=== PATIENT | female | born 1930 | race Caucasian/White ===

== ENCOUNTER 2016-07-10 12:39 | Emergency (ER) | payer MEDICARE, MEDICAID ==
--- NOTE | ~2016-07-10 | ER ---
PATIENT'S NAME: JUAN CASTANEDA [facility] AGE: 86 Y [address] ROOM: [place] [address] LOCATION: [facility] ADMIT DATE: 07/10/2016 ER/Outpatient Report DISCHARGE DATE: 07/10/2016 FAMILY PHYSICIAN: Ekta Salazar MD ATTENDING PHYSICIAN: Mikhail Gonzalez Time of Arrival: 1239 hours. Time of Evaluation: 1239 hours. CHIEF COMPLAINT: Initially, ankle pain. HISTORY OF PRESENT ILLNESS: The patient is an 86-year-old female who presents to the emergency department today with chief complaint ankle pain. Upon questioning, the patient denies any pain at this time. However, she is breathing fast. She denies any chest pain and denies any shortness of breath. Although, she is breathing fast. She denies any fevers or chills. No nausea or vomiting. No diarrhea or constipation. Upon discussion with the family, the half-way has told them that the patient would not get out of bed today. She would need dressed and come down for breakfast, so they became concerned and sent her in for further evaluation. The patient denies any pain currently. PAST MEDICAL HISTORY: 1. Hypertension. 2. Hypothyroid. 3. Depression. 4. Anxiety. 5. Hemorrhoids. 6. Osteoarthritis. 7. Osteoporosis. PAST SURGICAL HISTORY: 1. Appendectomy. 2. Cholecystectomy. 3. Right oophorectomy. SOCIAL HISTORY: The patient lives in [facility]. Denies any tobacco, alcohol, illicit drug use. ALLERGIES: NO KNOWN DRUG ALLERGIES. PATIENT'S NAME: JUAN CASTANEDA [facility] AGE: 86 Y [address] ROOM: [place] [address] LOCATION: [facility] ADMIT DATE: 07/10/2016 ER/Outpatient Report DISCHARGE DATE: 07/10/2016 FAMILY PHYSICIAN: Ekta Salazar MD ATTENDING PHYSICIAN: Mikhail Gonzalez MEDICATIONS: Please see list. PRIMARY CARE DOCTOR: Ekta Salazar MD. REVIEW OF SYSTEMS: All systems are reviewed by myself and negative with the exception of those discussed in HPI and past medical history. PHYSICAL EXAMINATION: VITAL SIGNS: Pulse 70, respiratory rate 38, temperature 97.3, blood pressure 140/65, pulse ox 97% on room air. GENERAL: The patient is 86-year-old female, who appears stated age, in no acute distress. Well developed, well nourished. HEENT: Head: Normocephalic, atraumatic. Pupils are equal, round, and reactive to light and accommodation. Extraocular motions are intact. Nares are patent bilaterally. TMs are clear. Oropharynx is clear. NECK: Supple. There is no nuchal rigidity. CARDIOVASCULAR: Regular rate and rhythm. No murmurs, rubs, or gallops. LUNGS: Tachypneic, but clear to auscultation bilaterally. No wheezes, rales, or rhonchi. ABDOMEN: Soft, nontender, and nondistended. No rebound, rigidity, or guarding. MUSCULOSKELETAL: The patient moves all 4 extremities. NEUROLOGICAL: GCS 15. Alert and oriented x4. Cranial nerves 2 through 12 are intact. Normal finger to nose. Normal rapid hand movement. Equal agency cashier strength bilaterally. Downward going toes. No clonus. 2/4 reflexes. SKIN: Warm and dry. There are no rashes or lesions noted. DIAGNOSTIC DATA: Labs and x-rays are obtained. EKG is obtained, is interpreted by myself shows sinus bradycardia with a rate of 59, normal axis, AZ interval 211, QTc of 454, no ST elevation, ST depression, T-wave inversions. CBC is normal. Venous blood gas 7.49/28/32/22/negative 1.0. Lactate is 2.5. Coags are normal. Cardiac enzymes are normal. Salicylate less than 2.8. Acetaminophen is 9.2. LFTs are normal. Procalcitonin 0.05. CMP is unremarkable except for a CO2 of 21, creatinine 1.6. D-dimer is 2.48. ProBNP is 2980. CT scan of the brain was obtained. I have discussed the results with radiologist, shows small-vessel change, no acute process. Ultrasound of bilateral lower extremities obtained. I have discussed the results with the venous Doppler tech. It is negative for DVT. V/Q scan was obtained. PATIENT'S NAME: JUAN CASTANEDA [facility] AGE: 86 Y [address] ROOM: [place] [address] LOCATION: ED ADMIT DATE: 07/10/2016 ER/Outpatient Report DISCHARGE DATE: 07/10/2016 FAMILY PHYSICIAN: Ekta Salazar MD ATTENDING PHYSICIAN: Mikhail Gonzalez Discussed the results with the radiologist shows low probability for pulmonary embolism. Urinalysis is contaminated specimen with 20-50 epithelials without symptoms. IMPRESSION: 1. Tachypnea, resolved. 2. Bilateral ankle pain, resolved. 3. Elevated D-dimer. 4. Initial visit. EMERGENCY DEPARTMENT COURSE: The patient was brought back to the examination room. Seen and evaluated by myself. IV was established. Laboratory analysis and imaging are obtained as described above. The patient upon initial presentation does appear tachypneic with normal lung sounds. She denies chest pain and denies shortness of breath with elevated D-dimer. We did proceed with further evaluation for potential blood clot. The patient's family does arrive. The patient spontaneously resolved tachypnea. She was acting completely normal per family. She actually gets up and walks to the bathroom with a walker which she normally uses. She was conversing completely appropriately. I have discussed the results with the patient of the laboratory analysis and imaging as well as the patient's family. The patient was back at her baseline at this time. She was ambulating throughout the emergency department. She has no tachypnea now. She has no evidence of blood clots on the CT scan or ultrasound. She reports that she has no symptoms at this time. She would like to go home. I have discussed the results with the patient and I have recommended close followup with Dr. Salazar in 1-2 days for re-evaluation. I have discussed return to care instructions including worsening symptoms, chest pain, shortness of breath, fevers, chills, or any other concerns to return to the emergency department as soon as possible. The patient is agreeable and family is agreeable. They are without further questions at this time. DISPOSITION: The patient discharged home in good condition. DO SHAKIRA PURI/jil /[id number] d: 07/11/16 0742 t: 03/24/17 1032, OUTPATIENT REPORT
--- NOTE | ~2016-07-10 | ENPV ---
Vascular Lower Extremities DVT Study Procedure Demographics Patient Name JUAN CASTANEDA Date of Study 07/10/2016 Patient Number [id number] Gender Female Date of 1930 Age 86 Visit Number [id number] Height Accession Number [id number] Weight Room Number BSA BMI Referring Lisa Elizondo MD Interpreting Shaka Mcclendon MD Physician Physician Physician Ordering Physician Lisa Elizondo MD [employer] Mckay [employer] [facility], [facility] Conclusions Summary No evidence of deep vein thrombosis or superficial thrombophlebitis in the lower extremities bilaterally . Procedure Type of Study: Veins:Lower Extremities DVT Study, Venous Duplex Lower Extremity Bilateral. Indications for Study:Pain in Limb. Appropriate Use Criteria:9 Patient Status:STAT. Study Location:ER. Technical Quality:Adequate visualization. Velocities are measured in cm/s ; Diameters are measured in cm Right Lower Extremities DVT Study Measurements Right 2D and Doppler Measurements + + + + +------+------+ + !Location !Visualized!Compressibility!Thrombosis!Signal!Reflux!Reflux ! ! ! ! ! ! ! !(sec) ! + + + + +------+------+ + !GSV Thigh !Yes !Yes !None !Phasic! ! ! + + + + +------+------+ + !Common !Yes !Yes !None !Phasic! ! ! !Femoral ! ! ! ! ! ! ! + + + + +------+------+ + !Prox !Yes !Yes !None !Phasic! ! ! !Femoral ! ! ! ! ! ! ! + + + + +------+------+ + !Mid Femoral!Yes !Yes !None !Phasic! ! ! + + + + +------+------+ + !Dist !Yes !Yes !None !Phasic! ! ! !Femoral ! ! ! ! ! ! ! + + + + +------+------+ + !Popliteal !Yes !Yes !None !Phasic! ! ! + + + + +------+------+ + !Gastroc !Yes !Yes !None ! ! ! ! + + + + +------+------+ + !PTV !Yes !Yes !None ! ! ! ! + + + + +------+------+ + !Peroneal !Yes !Yes !None ! ! ! ! + + + + +------+------+ + Left Lower Extremities DVT Study Measurements Left 2D and Doppler Measurements + + + + +------+------+ + !Location !Visualized!Compressibility!Thrombosis!Signal!Reflux!Reflux ! ! ! ! ! ! ! !(sec) ! + + + + +------+------+ + !GSV Thigh !Yes !Yes !None !Phasic! ! ! + + + + +------+------+ + !Common !Yes !Yes !None !Phasic! ! ! !Femoral ! ! ! ! ! ! ! + + + + +------+------+ + !Prox !Yes !Yes !None !Phasic! ! ! !Femoral ! ! ! ! ! ! ! + + + + +------+------+ + !Mid Femoral!Yes !Yes !None !Phasic! ! ! + + + + +------+------+ + !Dist !Yes !Yes !None !Phasic! ! ! !Femoral ! ! ! ! ! ! ! + + + + +------+------+ + !Popliteal !Yes !Yes !None !Phasic! ! ! + + + + +------+------+ + !Gastroc !Yes !Yes !None ! ! ! ! + + + + +------+------+ + !PTV !Yes !Yes !None ! ! ! ! + + + + +------+------+ + !Peroneal !Yes !Yes !None ! ! ! ! + + + + +------+------+ + Signature dtt: CHRISTIANNE BROWN dtd: 07/10/16 1432 Physician Self Edkavitha
[2016-07-10 13:45] LABS: BICARBONATE 21.3 mmol/L (18.0-23.0); LACTATE 2.5 mEq/L (0.50-1.60); PCO2 28 mmHg (35-45)
[2016-07-10 13:46] LABS: HEMATOCRIT 39.5 % (30.0-46.0); HEMOGLOBIN 13.6 g/dL (10.0-15.0); MCHC 34.4 gm/dL (32.0-36.5); MCV 92.9 fl (83.0-98.0); MPV 9.1 fl (9.4-12.4); PLATELET COUNT 193 K/uL (150-450); PO2 32 mmHg (80-90); RBC 4.25 M/uL (3.00-5.00); RDW-CV 13.2 % (11.9-14.6)
[2016-07-10 13:58] LABS: INR - (THERAPEUTIC) 1.1 (0.9-1.1); PROTIME 11.1 SECONDS (9.6-11.1); PTT 25 SECONDS (25-32)
[2016-07-10 14:08] LABS: ALBUMIN 3.4 gm/dL (3.5-5.0); ALK PHOS 110 IU/L (33-138); ALT 18 IU/L (12-78); ANION GAP 16.7 (10.0-19.0); AST 21 IU/L (10-40); BLOOD UREA NITROGEN 21 mg/dL (6-24); CHLORIDE 106 mMol/L (96-110); CO2 21 mMol/L (22-32); CPK 41 IU/L (21-215); CREATININE 1.6 mg/dL (0.5-1.1); ESTIMATED GFR (MDRD EQUATION) 30; POTASSIUM 4.7 mMol/L (3.7-5.1); SODIUM 139 mMol/L (135-145); TOTAL BILIRUBIN 1.2 mg/dL (0.0-1.5); TOTAL PROTEIN 7.2 g/dL (6.0-8.4)
[2016-07-10 14:15] LABS: ABSOLUTE NEUTROPHIL CT (ANC) 7.4 K/uL (1.8-7.8); BANDED NEUTROPHIL # 0.1 K/uL (0.0-0.1); BANDED NEUTROPHILS % 1 %; LYMPHOCYTE # 0.4 K/uL (0.8-4.0); LYMPHOCYTE % 5 %; MONOCYTE # 0.2 K/uL (0.0-1.0); SEGMENTED NEUTROPHIL # 7.4 K/uL (1.8-7.8); SEGMENTED NEUTROPHIL % 92 %
[2016-07-10 14:30] LABS: BILIRUBIN URINE NEGATIVE (NEGATIVE); BLOOD URINE 25 /UL (NEGATIVE); COLOR URINE YELLOW (YELLOW); GLUCOSE URINE NEGATIVE (NEGATIVE); KETONE URINE NEGATIVE (NEGATIVE); LEUKOCYTES URINE 500 /UL (NEGATIVE); NITRITE URINE NEGATIVE (NEGATIVE); PROTEIN URINE NEGATIVE (NEGATIVE); TURBIDITY URINE 2+ (CLEAR); UROBILINOGEN URINE NORMAL (NORMAL)
[2016-07-10 14:52] LABS: AMORPHOUS URINE 1+ (NEGATIVE); BACTERIA URINE MODERATE (NEGATIVE); EPITHELIAL URINE 20-50 #/HPF (NEGATIVE); WBC URINE 20-50 #/HPF (NEGATIVE)
== END 2016-07-10 17:19 | disposition disaster alternative care site (69) ==
LOC: GMED 12:39
PROVIDERS: Emergency Medicine
DX: M25.572 Pain in left ankle and joints of left foot (principal); M25.571 Pain in right ankle and joints of right foot; R06.82 Tachypnea, not elsewhere classified; R79.1 Abnormal coagulation profile; I10 Essential (primary) hypertension; E03.9 Hypothyroidism, unspecified; F32.9 Major depressive disorder, single episode, unspecified; F41.9 Anxiety disorder, unspecified; M19.90 Unspecified osteoarthritis, unspecified site; M81.0 Age-related osteoporosis without current pathological fracture; Z90.49 Acquired absence of other specified parts of digestive tract
CPT/HCPCS: A9539; A9540; G0480; J2060; J3010

== ENCOUNTER → 2016-07-10 | Outpatient (CLI) | payer MEDICARE, MEDICAID ==
[~2016-07-10] MED LIST: ALOE VESTA226 GM TOP; ASPIRIN LO-DOSE81 MG PO; ATIVAN 0.5MG0.5 MG PO; DOXYCYCLINE100 MG PO; DULCOLAX10 MG R; FLORASTOR250 MG PO; LEVOTHROID (SY50 MCG PO; LOPRESSOR25 MG PO; MILK OF MA400 MG/5 M PO; MIRALAX17 GM PO; PRINIVIL (ZESTRI5 MG PO; TRIAMCINOLONE454 GM TOP; TYLENOL325 MG PO
== END | disposition disaster alternative care site (69) ==
LOC: GAMB 12:26
DX: S89.91XA Unspecified injury of right lower leg, initial encounter (principal); M10.9 Gout, unspecified; M79.662 Pain in left lower leg; M25.572 Pain in left ankle and joints of left foot; Z79.899 Other long term (current) drug therapy; X58.XXXA Exposure to other specified factors, initial encounter
CPT/HCPCS: A0425; A0427

== ENCOUNTER 2016-07-14 20:01 | Inpatient (IN) | payer MEDICARE, MEDICAID ==
[~2016-07-14] VITALS: Ht 157.5 cm; Wt 82.1 kg
--- NOTE | ~2016-07-14 | CON ---
PATIENT'S NAME: JUAN CASTANEDA [facility] AGE: 86 Y [address] ROOM: [place] [address] LOCATION: [facility] ADMIT DATE: 07/15/2016 Consultation DISCHARGE DATE: FAMILY PHYSICIAN: Ekta Salazar MD ATTENDING PHYSICIAN: Adis Kimble DATE OF CONSULTATION: 07/15/2016 REFERRING PHYSICIAN: Vinay Ordaz MD CHIEF COMPLAINT: Right groin abscess. REVIEW OF RECORD: The patient is an 86-year-old elderly lady, who is a poor historian, came from the longterm after having some balance issues and fell. During the evaluation process, she was found to have a right groin 3 cm soft tissue abscess and spontaneous drainage through a decompressive site. Minimal erythema. No fevers. The patient was admitted to the hospital and started on IV antibiotics. I was asked to render surgical opinion regarding incision and drainage. PAST MEDICAL HISTORY: Reviewed. ALLERGIES: NONE. ILLNESSES: Include dementia, hypertension, hypothyroidism, chronic renal disease, depression, and chronic lower leg extreme edema. MEDICATION LIST: Noted. PAST SURGICAL HISTORY: Include gallbladder removal, hysterectomy, appendectomy, right knee surgery, and bilateral cataract. REVIEW OF SYSTEMS: The patient denies any prior history of abscess in this region but she says this one has been present for 2 years. Denies any other sites of soft tissue infections. PHYSICAL EXAMINATION: GENERAL: Limited exam. She is alert, cooperative, afebrile. PATIENT'S NAME: JUAN CASTANEDA [facility] AGE: 86 Y [address] ROOM: [place] [address] LOCATION: [facility] ADMIT DATE: 07/15/2016 Consultation DISCHARGE DATE: FAMILY PHYSICIAN: Ekta Salazar MD ATTENDING PHYSICIAN: Adis Kimble HEENT: Mucous membranes are moist. NECK: Supple. There is no adenopathy. LUNGS: Clear. HEART: Normal sinus rhythm. ABDOMEN: Soft, flat, and nontender. EXTREMITIES: Her right groin has a 3 cm soft tissue mass with a punctate draining site, looks like a core was removed from it. There is minimal surrounding erythema. No undrained fluctuance. Left groin is fine. Trace of peripheral edema bilaterally. IMPRESSION: Soft tissue mass, right groin. Recommend completion incision and drainage to rule out undrained fluid abscess cavity collection. Thank you very much for allowing me to participate in her care. MD RENAN KRAMER/og /[id number] d: 07/15/16 1529 t: 07/18/16 1045, CONSULTATION REPORT
--- NOTE | ~2016-07-14 | DS ---
PATIENT'S NAME: JUAN CASTANEDA [facility] AGE: 86 Y [address] ROOM: [address] [address] LOCATION: [facility] ADMIT DATE: 07/15/2016 Discharge Summary DISCHARGE DATE: 07/16/2016 FAMILY PHYSICIAN: Ekta Salazar MD ATTENDING PHYSICIAN: Adis Kimble DISCHARGE DIAGNOSES: 1. Right groin abscess. 2. Dementia. 3. Chronic lower extremity edema. 4. Generalized weakness. PRINCIPAL PROCEDURE: I and D of right groin abscess at the bedside on 07/15/[address] Ordaz. PERTINENT LABORATORY DATA: Wound culture collected from the groin on 07/14/2016 at the time of admission showed Staph aureus, moderate growth; and diphtheroid, moderate growth. UA obtained in the ER showed 25 leukocytes, negative nitrites, microscopically 2-5 wbc's, 5-10 rbc's, and few bacteria. CMS was unremarkable with the exception of a creatinine of 1.5, GFR 33, and a mildly elevated AST of 62. CRP was elevated at 9.49. Lactate 1.4. Procalcitonin 0.05. CBC upon admission showed a white count of 9.3, hemoglobin 13.7, MCV 97, and platelets 237. The lactate was repeated on 07/15/2016 and found to be 0.8. A BMP on 07/15/2016 showed a creatinine of 1.3. Blood cultures drawn on 07/14/2016 are negative at the time of discharge. RADIOLOGIC DATA: A CT scan without contrast on 07/14/2016 did have an area of suspected diverticulitis of the sigmoid colon. No free air. No bowel obstruction, distended common bile duct with a diameter of 15 mm, no obstructing calculi. There were atrophic kidneys, sliding hiatal hernia, vascular calcifications, and a calcified granuloma of the left mid lung. HOSPITAL COURSE: Please refer to the admitting H and P dictated by Dr. Kimble for more detailed outline of the patient's presentation. The patient was ultimately admitted to the medical-surgical unit. General Surgery was consulted. The patient had no complaint of abdominal pain, alterations in bowel habits. Given the lack of clinical findings confirming the diverticulitis, ultimately, the initial Zosyn and Flagyl given for coverage were discontinued on 07/15/2016. Dr. Ordaz saw the patient in consultation. Please refer to his consultation for more detailed outline. At that point, recommendation of I and D was made. The patient underwent an I and D of the right groin abscess on 07/15/2016. Please refer to the operative summary note dictated by Dr. Ordaz. There was residual pus remaining in the drainage PATIENT'S NAME: JUAN CASTANEDA [facility] AGE: 86 Y [address] ROOM: [place] [address] LOCATION: [facility] ADMIT DATE: 07/15/2016 Discharge Summary DISCHARGE DATE: 07/16/2016 FAMILY PHYSICIAN: Ekta Salazar MD ATTENDING PHYSICIAN: Adis Kimble. Ultimately, incision was carried down, and it was packed with Nu Gauze. The patient tolerated the procedure well. On the evening of 06/17/2016, the linezolid was also discontinued. The patient tolerated the draining of the abscess well. The patient was made a regular diet as far as oral intake and n.p.o. status was discontinued. Ultimately, on 07/16/2016, the patient was feeling well. No abdominal pain. No alterations in bowel habits, and really complained of no groin pain following her procedure from the day before. The patient was anxious to return back to her initial living situation. Ultimately, felt it was reasonable for the patient to discharge to her [facility]. The patient will need daily dressing changes per Dr. Ordaz's recommendations. Dressing changes are to be done with dry 0.5 inch Nu Gauze wick into wound gently. We had care management help arrange for Home Health to assist with these dressing changes along with some physical and occupational therapy. The patient was in agreement to this plan as was the patient's daughter. DISPOSITION: Ultimately, the patient is being discharged back to [place] on 07/16/2016. Dr. Ordaz graciously will see the patient in the outpatient clinic. We made arrangements to do so in 1 week. We also made arrangements for her to follow up with Dr. Ekta Salazar in 1 weeks' time also. The patient voiced verbal understanding of this. Instructions were given to Home Health as far as dressing change instructions. Discharge of this patient took greater than 35 minutes and included coordinating of care with Home Health, filling out the appropriate paperwork, reviewing of medications, and followup appointments. SAKINA YEPEZ PA-C FOR MD JAIR STEELE/jil /[id number] CC: MD Ekta Wiley MD d: 07/17/16 0100 t: 07/18/16 1823, DISCHARGE SUMMARY
--- NOTE | ~2016-07-14 | HP ---
PATIENT'S NAME: JUAN CASTANEDA [facility] AGE: 86 Y [address] ROOM: [place] [address] LOCATION: [facility] [place] ADMIT DATE: 07/15/2016 History & Physical DISCHARGE DATE: FAMILY PHYSICIAN: Ekta Salazar MD ATTENDING PHYSICIAN: Adis Kimble DATE OF SERVICE: CHIEF COMPLAINT: Foul-smelling purulent discharge from the right groin wound, likely an abscess. HISTORY OF PRESENT ILLNESS: This is an 86-year-old female, alf resident, who is a very poor historian. She has underlying dementia, which makes the story very difficult to be obtained. The patient is very nonspecific, and the story is that the patient says that she has been having this right groin funny sensation and bloody and yellowish discharge as well as some mild tenderness in the right groin area for the last 1 to 2 weeks, but she never actually looked at the right groin. She denies any fever, but she did feel some chills for the last few days. She also says that last night after using the bathroom she was walking on the bathroom with a walker and because she felt so weak in her legs, she sat down on the chair that is attached to her walker, and while she was resting on the chair, she accidentally slipped and fell forward out of the chair to the ground. She denies any pain in the pelvis or the hip or the knee or the leg, and she denies hitting her head. She states she simply just sat on the ground from the walker's chair. She denies any loss of consciousness or any chest pain or presyncope or blurry vision or palpitation or shortness of breath prior to the fall. She was able to get up and continue with her daily activities. She also complained that for the last few weeks she has been becoming progressively weak in her lower extremities, and has been having difficulty with her activities of daily living, and has become progressively more deconditioned and also poor appetite with failure to thrive. Because of the foul-smelling discharge in the right groin area, the patient was sent here for evaluation. The patient states that she chronically has bilateral lower extremity edema and this has not changed. She has had this edema for a long time, but she could not tell me for how long. When questioned if she gets shortness of breath at rest or on exertion, the patient denies any shortness of breath at all. REVIEW OF SYSTEMS: As mentioned in the history of present illness. All other systems reviewed and negative except for those mentioned in the history of present illness. PAST MEDICAL HISTORY: PATIENT'S NAME: JUAN CASTANEDA [facility] AGE: 86 Y [address] ROOM: [place] [address] LOCATION: [facility] [place] ADMIT DATE: 07/15/2016 History & Physical DISCHARGE DATE: FAMILY PHYSICIAN: Ekta Salazar MD ATTENDING PHYSICIAN: Adis Kimble 1. Hypertension. 2. Hypothyroidism. 3. Chronic kidney disease, stage 3. 4. Dementia. 5. Depression. 6. Chronic lower extremity edema. ALLERGIES: NO KNOWN DRUG ALLERGIES ACCORDING TO HER AND TO THE MEDICAL RECORDS. HOME MEDICATIONS: 1. Tylenol 650 mg p.o. q.4 hours p.r.n. for pain or fever. 2. Dulcolax 10 mg per rectum every day p.r.n. for constipation. 3. Levothyroxine 50 mcg p.o. daily. 4. Lisinopril 5 mg p.o. daily. 5. Milk of magnesia 30 mL p.o. everyday daily p.r.n. for constipation. 6. Lopressor 12.5 mg p.o. b.i.d. 7. MiraLAX 17 g p.o. daily p.r.n. for constipation. 8. Triamcinolone 0.1% cream topically b.i.d. to skin rash area. SOCIAL HISTORY: The patient denies any cigarette or alcohol or illegal drug use. The patient ambulates with a walker at baseline. PAST SURGICAL HISTORY: 1. Status post cholecystectomy. 2. Status post total abdominal hysterectomy and bilateral salpingo- oophorectomy. 3. Status post appendectomy. 4. Status post right knee surgery in the past from trauma. 5. Status post bilateral cataract surgery. FAMILY HISTORY: Both parents from advanced age from a cause that she could not remember. PHYSICAL EXAMINATION: VITAL SIGNS: At the time of my dictation, temperature 97.8, heart rate 79, respirations 16, blood pressure 129/60, and saturation 94% on room air. Pain 1/10 in the right groin area. GENERAL APPEARANCE: A frail and elderly and deconditioned female, in no acute distress. HEENT: Pupils equally round and reactive to light. Extraocular muscles intact. Anicteric sclerae. Nasal turbinates are normal bilaterally. Dry oral mucosa. No oral thrush. PATIENT'S NAME: JUAN CASTANEDA [facility] AGE: 86 Y [address] ROOM: [place] [address] LOCATION: [facility] [place] ADMIT DATE: 07/15/2016 History & Physical DISCHARGE DATE: FAMILY PHYSICIAN: Ekta Salazar MD ATTENDING PHYSICIAN: Adis Kimble NECK: No JVD. No cervical lymphadenopathy. No neck stiffness. CARDIOVASCULAR: Regular rate and rhythm. Normal S1, S2. No murmurs, no rubs, no gallops. RESPIRATORY: Clear. Chest wall is nontender to palpation. ABDOMEN: Obese, soft, nontender, nondistended. Normal bowel sounds. No hepatosplenomegaly. There is no tenderness to palpation in the abdomen. EXTREMITIES: Pitting edema in bilateral lower extremities. The patient states this is chronic and is at baseline. SKIN: Below the right groin area, just lateral to the female genitalia, the patient denies any pain during my examination. I tried to squeeze the open wound, some yellowish and very foul-smelling odor came out. MUSCULOSKELETAL: No joint pain, no muscle pain. NEUROLOGICAL: Remarkable for muscle weakness in bilateral lower extremities, about 2/5, otherwise unremarkable. LABORATORY DATA: Lactic acid 1.4. Troponin less than 0.04. White blood cell 9.3, hemoglobin 13.7, hematocrit 42, MCV 97, platelet 237. Glucose 91, BUN 39, creatinine 1.5, sodium 140, potassium 4.6, chloride 106, CO2 of 23, calcium 9.2, total protein 7.4, albumin 3.4, AST 62, ALT 30, alkaline phosphatase 108, total bilirubin 0.5, GFR 33, anion gap 15.6, INR 1.0, PTT 25. Urinalysis: Leukocytes 25, white blood cells 2 to 5, few bacteria and negative nitrite. CRP 9.49. Procalcitonin 0.05. TSH pending. IMAGES STUDIES: Chest x-ray on admission, official reading is pending, based on my review unremarkable. CT of the head without contrast on admission, the preliminary report was read as moderate nonspecific periventricular deep white matter disease. CT of the abdomen and pelvis without contrast on admission, the preliminary report showed diverticulitis of the sigmoid colon and atrophy of bilateral kidneys. ASSESSMENT AND PLAN: 1. Regarding her right groin abscess: I will consult General Surgery. Waiting for the final report of the CT of abdomen and pelvis and additional imaging test could be performed to better look at the right groin area if necessary. Continue with IV antibiotics, IV Zosyn and IV linezolid, and I will start her on p.o. Florastor to prevent the antibiotic-induced Clostridium difficile colitis. Currently, blood cultures already obtained and pending. The right groin Gram stain and culture has also been ordered. Urine culture also pending. Follow up on the labs tomorrow morning. Further plan depends on clinical course. PATIENT'S NAME: JUAN CASTANEDA [facility] AGE: 86 Y [address] ROOM: [place] [address] LOCATION: [facility] [place] ADMIT DATE: 07/15/2016 History & Physical DISCHARGE DATE: FAMILY PHYSICIAN: Ekta Salazar MD ATTENDING PHYSICIAN: Adis Kimble 2. Regarding questionable diverticulitis of the sigmoid colon based on the preliminary CT on admission: The patient denies any abdominal pain on physical examination. The patient is a poor historian; therefore, she is not really a reliable historian. On examination, the abdomen is soft and does not seem to be painful on palpation. For now, I am going to cover with IV Flagyl just in case she actually has a diverticulitis. I will follow up on the official report of the CT abdomen and pelvis to confirm if she actually has a diverticulitis or not. She is already on Zosyn as part of the coverage for the right groin abscess. Therefore, a combination of Zosyn and Flagyl will be good for the coverage of diverticulitis. For now, I will put her on n.p.o., and if the official report of the CT abdomen and pelvis did not show diverticulitis, then she could eat a cardiac diet, and at that time, she could benefit from a Nutrition consult. Further plan depends on clinical course. While she is n.p.o., she will be getting D5 water and normal saline at a maintenance rate at 60 mL/h. Her lungs are clear, saturation is 96% on room air. She denies dyspnea. 3. Regarding her hypothyroidism: Check a TSH and modify the dose of the levothyroxine if necessary. 4. Regarding her hypertension: I will hold off on the home lisinopril given that the patient currently has acute kidney injury on chronic kidney disease. Once the kidney function comes back to the normal baseline, therefore lisinopril at that time can be resumed. 5. Regarding her failure to thrive and deconditioning: Physical Therapy and Occupational Therapy consult. Fall precaution. Ambulation only with assistance. Nutrition consult once the CT abdomen and pelvis rules out diverticulitis. 6. Deep vein thrombosis prophylaxis: The patient is on Lovenox, renally dosed. 7. Code status: She is a DNR/DNI. Time spent on the day of admission 40 minutes including chart review, interviewing the patient, examining the patient, addressing all the questions and concerns the patient and her family members had at the bedside, and I also went over the plan of care in detail with the patient and her daughter and also with the nurses. ADIS KIMBLE MD CC/modl PATIENT'S NAME: JUAN CASTANEDA [facility] AGE: 86 Y [address] ROOM: [place] [address] LOCATION: [facility] [place] ADMIT DATE: 07/15/2016 History & Physical DISCHARGE DATE: FAMILY PHYSICIAN: Ekta Salazar MD ATTENDING PHYSICIAN: Adis Kimble /[id number] D: 727 T: HISTORY & PHYSICAL
--- NOTE | ~2016-07-14 | ER ---
PATIENT'S NAME: JUAN CASTANEDA [facility] AGE: 86 Y [address] ROOM: [place] [address] LOCATION: [facility] [place] ADMIT DATE: 07/15/2016 ER/Outpatient Report DISCHARGE DATE: FAMILY PHYSICIAN: Ekta Salazar MD ATTENDING PHYSICIAN: Adis Kimble CHIEF COMPLAINT: Confusion, vaginal bleeding, and falls. HISTORY OF PRESENT ILLNESS: The patient is a long-term patient. They report she has been more confused lately. They noticed some blood when they wiped her recently. She does have a history of dementia. She denies any significant pain. She is confused more than she normally would. No other acute findings. PAST MEDICAL HISTORY: Documented on the record and reviewed by me. SOCIAL HISTORY: Documented on the record and reviewed by me. MEDICATIONS: Documented on the record and reviewed by me. ALLERGIES: DOCUMENTED ON THE RECORD AND REVIEWED BY ME. REVIEW OF SYSTEMS: All systems reviewed and negative except as noted in HPI. PHYSICAL EXAMINATION: VITAL SIGNS: Blood pressure on arrival 214/91, pulse 71, respiratory rate is 18, temperature 97.2, SpO2 is 94% on room air. Pain 0/10. GENERAL: Age-appropriate female, in no obvious pain or distress. Resting on the exam table. NEUROLOGIC: The patient is awake, she is alert. She does follow commands in all extremities. She is confused. No obvious asymmetry on exam. HEENT: Normocephalic, atraumatic. Eyes are PERRL. Oropharynx is clear. NECK: Supple. Trachea is midline. CHEST: Heart is regular rate and rhythm with no obvious murmurs. The chest wall is nontender to palpation. LUNGS: Grossly clear to auscultation bilaterally with no rhonchi, wheezes, or rales. BACK: Back is normal to inspection and palpation. EXTREMITIES: Grossly unremarkable to inspection and palpation. PATIENT'S NAME: JUAN CASTANEDA [facility] AGE: 86 Y [address] ROOM: [place] [address] LOCATION: [facility] [place] ADMIT DATE: 07/15/2016 ER/Outpatient Report DISCHARGE DATE: FAMILY PHYSICIAN: Ekta Salazar MD ATTENDING PHYSICIAN: Adis Kimble : The patient does have an area of spontaneously draining abscess with some mild purulent and sanguinous material being expressed, it is right lateral of the labia. It does not involve the vagina. It is not perirectal. It is focal. SKIN: Otherwise warm, dry, and intact. LABORATORY DATA AND X-RAYS: Head CT with no specific findings. CT of the abdomen and pelvis with no contrast. It does reveal some sigmoid diverticulitis not consistent with clinical exam of wound, gram-stain, gram-positive cocci, gram-positive rods. Culture pending. Serum lactate is 1.4. Troponin is below threshold. CRP is 9.49. INR is 1.0. CMS: Creatinine is 1.5, GFR is 33, both at very near baseline. BUN is 39. AST slightly elevated at 62, otherwise unremarkable CMS. Urinalysis is notable for 25 leukocytes, no nitrites, 25 blood micro with 2 to 5 WBC's, 5 to 10 rbc's, 10 to 20 epithelial cells, few bacteria. Procalcitonin 0.05. CBC is grossly unremarkable. IMPRESSION: 1. Abscess of the perineum not involving the vagina or the rectum, spontaneously draining. 2. Confusion and falls. 3. Radiographic diverticulitis, not consistent with exam. EMERGENCY DEPARTMENT COURSE: The patient is seen and evaluated as above. Hemodynamically stable, not volume resuscitated. She is given Zosyn and linezolid in the emergency department. She will be admitted to the Hospitalist Service for further evaluation and treatment. MD TRESSA HOPKINS/og /[id number] d: 07/15/16828 t: 07/24/16912, OUTPATIENT REPORT
--- NOTE | ~2016-07-14 | OR ---
PATIENT'S NAME: JUAN CASTANEDA [facility] AGE: 86 Y [address] ROOM: [place] [address] [place] [facility] [place]: 07/15/2016 OR/Procedure Report DISCHARGE DATE: FAMILY PHYSICIAN: Ekta Salazar MD ATTENDING PHYSICIAN: Adis Kimble SURGEON: Vinay Iyer MD GENERAL [employer]PER[employer] YARD: DATE OF PROCEDURE: 07/15/2016 PREOPERATIVE DIAGNOSIS: Left groin soft tissue abscess. POSTOPERATIVE DIAGNOSIS: Left groin soft tissue abscess. PROCEDURE: Incision and drainage of soft tissue abscess, simple. ANESTHESIA: 5 mL of 1% Xylocaine. SPECIMEN: None. INDICATION: The patient is an 86-year-old young lady who came in with weakness and falls the hospital. She was also found to have a spontaneous drainage from a wound abscess of the right groin. There was about a 3 cm residual soft tissue mass, which I recommended we have incision and drainage of to make sure no undrained abscess cavity. I explained the procedure, benefits, and risks, and the patient agrees to proceed. DESCRIPTION OF PROCEDURE: After informed consent in the hospital room, the patient's right groin was prepped with alcohol and then Betadine. We injected local anesthetic, 5 mL in a field block. We did make a 1-inch incision carried down through the previous drainage hole into subcutaneous cavity. We were able to break into it with minimal residual pus remaining in that. We did pack it with Nu Gauze to allow it to heal by secondary intention. The patient tolerated the procedure well. Blood loss is minimal and pressure held. VINAY IYER MD WTS/modl /[id number] d: 07/15/16 1516 t: 07/18/16 1043, OPERATIVE SUMMARY
--- NOTE | ~2016-07-14 | DS ---
PATIENT'S NAME: JUAN CASTANEDA [facility] AGE: 86 Y [address] ROOM: [place] [address] LOCATION: [facility] [place] ADMIT DATE: 07/15/2016 Discharge Summary DISCHARGE DATE: 07/16/2016 FAMILY PHYSICIAN: Ekta Salazar MD ATTENDING PHYSICIAN: Adis Kimble ADDENDUM: DISCHARGE MEDICATION LIST: 1. Levothyroxine 50 mcg p.o. daily before breakfast. 2. Florastor 250 mg p.o. twice daily GI prophylaxis. 3. Acetaminophen 650 mg p.o. q.4 h. p.r.n. pain. 4. Metoprolol 12.5 mg p.o. b.i.d. 5. Dulcolax suppository 10 mg rectally daily p.r.n. constipation. 6. Milk of magnesia 30 mL p.o. daily p.r.n. constipation. 7. Lisinopril 5 mg p.o. daily. 8. MiraLAX 17 g p.o. daily p.r.n. 9. Triamcinolone cream 0.1% topically twice daily. 10. Doxycycline 100 mg p.o. b.i.d. x5 days. SAKINA Holly YEPEZ PA-C FOR MD JAIR STEELE/og /[id number] d: 07/17/165 t: 07/18/16 1825, DISCHARGE SUMMARY
[2016-07-14 21:16] LABS: BLOOD URINE 25 /UL (NEGATIVE); GLUCOSE URINE NEGATIVE (NEGATIVE); KETONE URINE 15 mg/dL (NEGATIVE); LEUKOCYTES URINE 25 /UL (NEGATIVE); NITRITE URINE NEGATIVE (NEGATIVE); PROTEIN URINE 30 mg/dL (NEGATIVE); UROBILINOGEN URINE 1 mg/dL (NORMAL)
[2016-07-14 21:22] LABS: BASOPHIL # 0.1 K/uL (0.0-0.2); BASOPHIL % 0.5 %; EOSINOPHIL # 0.1 K/uL (0.0-0.5); EOSINOPHIL % 1.1 %; HEMOGLOBIN 13.7 g/dL (10.0-15.0); IMMATURE GRANULOCYTE # 0.1 K/uL (0.0-0.3); IMMATURE GRANULOCYTE % 0.6 %; LYMPHOCYTE # 0.9 K/uL (0.8-4.0); LYMPHOCYTE % 9.3 %; MCH 31.6 pg (27.0-34.0); MCHC 32.6 gm/dL (32.0-36.5); MONOCYTE # 0.6 K/uL (0.0-1.0); MONOCYTE % 6.6 %; NEUTROPHIL # (ANC) 7.6 K/uL (1.8-7.8); NEUTROPHIL % 81.9 %; NRBC % 0 /100WBC (0-0.00); RBC 4.33 M/uL (3.00-5.00); RDW-CV 13.5 % (11.9-14.6); WBC 9.3 K/uL (4.0-11.0)
[2016-07-14 21:25] LABS: PLATELET COUNT 237 K/uL (150-450)
[2016-07-14 21:29] LABS: COLOR URINE YELLOW (YELLOW)
[2016-07-14 21:30] LABS: TURBIDITY URINE 1+ (CLEAR)
[2016-07-14 21:33] LABS: BACTERIA URINE FEW (NEGATIVE); MUCUS URINE 2+ (NEGATIVE)
[2016-07-14 21:39] LABS: ALBUMIN 3.4 gm/dL (3.5-5.0); CALCIUM 9.2 mg/dL (8.5-10.5); CREATININE 1.5 mg/dL (0.5-1.1); TOTAL PROTEIN 7.4 g/dL (6.0-8.4)
[2016-07-14 21:40] LABS: ANION GAP 15.6 (10.0-19.0); POTASSIUM 4.6 mMol/L (3.7-5.1); TOTAL BILIRUBIN 0.5 mg/dL (0.0-1.5)
[2016-07-15] MEDS ORDERED: LOPRESSOR25 MG PO (03:13)
[2016-07-15] MEDS ORDERED: TYLENOL325 MG PO (03:15)
[2016-07-15] MEDS ORDERED: DULCOLAX10 MG R (03:16)
[2016-07-15] MEDS ORDERED: MILK OF MA400 MG/5 M PO (03:17)
[2016-07-15] MEDS ORDERED: PRINIVIL (ZESTRI5 MG PO (03:18)
[2016-07-15] MEDS ORDERED: LEVOTHROID (SY50 MCG PO (03:19)
[2016-07-15] MEDS ORDERED: MIRALAX17 GM PO (03:19)
[2016-07-15] MEDS ORDERED: TRIAMCINOLONE454 GM TOP (03:20)
--- NOTE | 2016-07-15 03:28 | NUR ---
Admission: pt admitted around 219 from ER. acompanied by her daughter she is forgetful and oriented place and person. Pt is from [facility] and had fallen on 07/14 and was taken to ER where they did CT of head. main complaint was increased confussion. while in ER she stated she was having some vaginal pain. there is and open area with drainage on right labia. culture done in er. IV in right AC. hypertensive in ER. VSS on admission. normally walks with a walker but the past few weeks she has become more weak and has had some leg pain. Hx of arthritis, deppression, thyroid diease, edema in legs, hypertension, urgency to void. pt has reddened area on buttock and groin scabs on nose. lower legs are reddened. pt was 2 assist. pt was DNR at assisted living. NKA. up to date on flu shot. denies SOB. only in pain when she moves legs.
[2016-07-15 08:00] LABS: HEMATOCRIT 33.6 % (30.0-46.0); HEMOGLOBIN 11.4 g/dL (10.0-15.0); MCH 31.8 pg (27.0-34.0); MCHC 33.9 gm/dL (32.0-36.5); MCV 93.9 fl (83.0-98.0); MPV 8.6 fl (9.4-12.4); RBC 3.58 M/uL (3.00-5.00); RDW-CV 13.4 % (11.9-14.6); WBC 6.7 K/uL (4.0-11.0)
[2016-07-15 08:21] LABS: ANION GAP 13.9 (10.0-19.0); CALCIUM 8.2 mg/dL (8.5-10.5); CREATININE 1.3 mg/dL (0.5-1.1); PHOSPHORUS 2.4 mg/dL (2.5-4.9); POTASSIUM 3.9 mMol/L (3.7-5.1)
--- NOTE | 2016-07-15 17:10 | NUR ---
Significant Event: Patient up to chair briefly this a.m. Would have sat up longer but thought that Dr. Ordaz was on his way up. Patient has been up to the beside commode twice and is a 2 assist with gait belt and walker. Patient is slow moving but with encouragement is able to make it to and from the commode and needs to be getting up to do this to gain her strength back. Follow up: Continue to monitor.
--- NOTE | 2016-07-16 03:07 | NUR ---
SIGNIFICANT EVENT: Patient alert, oriented but forgetful. Patient was bearing no weight on attempt to get to BSC so opted to use bedpan x1 tonight - no results. Heavy 2PA - did well getting to the chair and BSC yesterday. Groin site dressing gauze saturated - 1/2 with segundo blood and 1/2 with a dried brown drainage - gauze only changed. Cooperative with cares. Monitor PIV to R) AC - dressing reinforced.
[2016-07-16 05:20] LABS: BASOPHIL % 0.5 %; EOSINOPHIL # 0.1 K/uL (0.0-0.5); EOSINOPHIL % 1.6 %; HEMATOCRIT 37.1 % (30.0-46.0); HEMOGLOBIN 12.4 g/dL (10.0-15.0); IMMATURE GRANULOCYTE % 0.7 %; LYMPHOCYTE % 18.6 %; MCH 31.5 pg (27.0-34.0); MCHC 33.4 gm/dL (32.0-36.5); MCV 94.2 fl (83.0-98.0); MONOCYTE # 0.6 K/uL (0.0-1.0); MONOCYTE % 10.1 %; NEUTROPHIL # (ANC) 3.8 K/uL (1.8-7.8); NEUTROPHIL % 68.5 %; NRBC % 0 /100WBC (0-0.00); RBC 3.94 M/uL (3.00-5.00); RDW-CV 13.4 % (11.9-14.6); WBC 5.5 K/uL (4.0-11.0)
[2016-07-16 05:35] LABS: ALBUMIN 2.9 gm/dL (3.5-5.0); CALCIUM 8.6 mg/dL (8.5-10.5); CREATININE 1.1 mg/dL (0.5-1.1); MAGNESIUM 1.9 mg/dL (1.3-2.6)
[2016-07-16 05:37] LABS: PLATELET COUNT 255 K/uL (150-450)
[2016-07-16 05:39] LABS: PHOSPHORUS 1.9 mg/dL (2.5-4.9)
--- NOTE | 2016-07-16 11:20 | NUR ---
Jovana Durant stated patient can go back to [facility] but has once a day dressing changes. Gave her a face to face form for HHC. 1125 Called [facility], [facility]. They can accept. Faxed information. 1135 Called and spoke to Ember at [facility]. They can come and get at 1400. This was communicated to charge Jovana and nurse Kamilla. 1145 Informed patient. Called daughter Kamilla #[phone]. Got updated phone number for 1st contact Lou and gave to admissions. 1150 Faxed meds to [facility]. Called Nina with discharge time.
--- NOTE | 2016-07-16 13:49 | NUR ---
Patient was admitted on 07/15/16 for groin abscess. I&D of abscess performed on day of admission. Packing to the wound with a 2x2 guaze and tape dressing is clean, dry and intact. She is a 1-2 assist with a walker and a gait belt. History of dementia, is disoriented to place and time. Dressing changes will need to be done daily.
[2016-07-16] MEDS ORDERED: FLORASTOR250 MG PO (14:37)
[2016-07-16] MEDS ORDERED: DOXYCYCLINE100 MG PO (14:37)
--- NOTE | 2016-07-16 15:30 | NUR ---
DISCHARGE: Pt. was explained discharge instructions, wound packing, wound care, and educated on new medications. Verbalized understanding, no questions or concerns. Faxed paperwork to [facility] and made courtesy packet for [facility]. IV removed by primary RN. Transported by [facility] staff to [facility]. Left with all belongings and prescriptions.
== END 2016-07-16 15:45 | disposition home health service (06) | DRG 580 ==
LOC: GACC 20:01 → GMSU 07-15 01:18
PROVIDERS: Emergency Medicine; Physician Assistant; ADMIT Internal Medicine
PROC: 0Y950ZZ Drainage of Right Inguinal Region, Open Approach (ICD-10-PCS; principal; 2016-07-15)
DX: L02.214 Cutaneous abscess of groin (principal); N17.9 Acute kidney failure, unspecified; F03.90 Unspecified dementia, unspecified severity, without behavioral disturbance, psychotic disturbance, mood disturbance, and anxiety; E03.9 Hypothyroidism, unspecified; Z66 Do not resuscitate; R62.7 Adult failure to thrive; R60.0 Localized edema; R53.1 Weakness; L02.215 Cutaneous abscess of perineum; I12.9 Hypertensive chronic kidney disease with stage 1 through stage 4 chronic kidney disease, or unspecified chronic kidney disease; N18.3 Chronic kidney disease, stage 3 (moderate)
CPT/HCPCS: J1650; J2020; J2543; J7042; J7050

== ENCOUNTER 2016-08-19 17:54 | Emergency (ER) | payer MEDICARE, MEDICAID ==
--- NOTE | ~2016-08-19 | ER ---
PATIENT'S NAME: JUAN CASTANEDA [facility] AGE: 86 Y [address] ROOM: [place] [address] LOCATION: [facility] ADMIT DATE: 08/19/2016 ER/Outpatient Report DISCHARGE DATE: 08/19/2016 FAMILY PHYSICIAN: Ekta Salazar MD ATTENDING PHYSICIAN: Mariano Wade Time of Arrival: 1800 hours. Time of Exam: 1800 hours. CHIEF COMPLAINT: Abdominal pain. HISTORY OF PRESENT ILLNESS: The patient arrived per EMS [facility] Risk Specialist. The patient is a resident at [facility]. They are concerned that she has not felt well this past week. She has been complaining of generalized abdominal pain and having a decreased appetite. She had a fever at the prison of 100, they did give her some Tylenol. She has not had any vomiting. Did have some diarrhea stools last week. No blood was noted. ALLERGIES: NO KNOWN ALLERGIES. CURRENT MEDICATIONS: On the chart and reviewed by me. PAST MEDICAL HISTORY: Hypertension, hypothyroidism, diverticulitis, depression, chronic kidney disease, and dementia. PAST SURGERIES: Include hysterectomy, cholecystectomy, appendectomy, cataracts, and surgery to the right knee. SOCIAL HISTORY: No use of tobacco or drugs. Alcohol, unknown. The patient is a resident at [facility]. REVIEW OF SYSTEMS: Negative other than those mentioned in the HPI. PHYSICAL EXAMINATION: VITAL SIGNS: The patient weighed 77.4 kg. Blood pressure is 130/63, pulse is 67, respirations 18, temperature of 98 tympanic, and O2 saturation was 92% on room air. PATIENT'S NAME: JUAN CASTANEDA [facility] AGE: 86 Y [address] ROOM: [place] [address] LOCATION: [facility] ADMIT DATE: 08/19/2016 ER/Outpatient Report DISCHARGE DATE: 08/19/2016 FAMILY PHYSICIAN: Ekta Salazar MD ATTENDING PHYSICIAN: Mariano Wade GENERAL: The patient is awake and alert. Moans when describing her abdominal pain. When asked to pinpoint it, she just rubs her whole stomach. She is rather nonverbal at this time. When asked if she has chest pain, she shakes her head,"no." Asked if she has sick to her stomach, she shook her head, "no." She does have an IV that was started by the paramedics and normal saline is running at a TKO rate. She was given fentanyl prior to arrival. LUNGS: Lung sounds were clear throughout. HEART: Regular rate and rhythm. ABDOMEN: Soft and nondistended. Bowel sounds are present. She has some generalized tenderness when her belly is poked. LABORATORY DATA: Lab work was obtained. CBC is within normal limits. Chem panel: BUN is 25 with a creatinine of 1.4, which is similar to her baseline. GFR was 35. Amylase was 44, lipase was 180. Thyroid is normal. Lactate was 1.2. Procalcitonin was negative. A cath UA was obtained, it is negative for bacteria. The patient rested comfortably on the cart. Fluids from the IV were infused. CT scan was done. Radiologist reports that there was some very mild sigmoid thickening, but no signs of obstruction, no changes from her previous CAT scan. On reevaluation, the patient states her pain is gone asking if she can go home now. We did assist her standing up to determine whether she was able to move in and around on her own. With minimal assistance, she was able to stand, able to take a few steps. She denied having any pain at that time. She is awake, alert, and oriented x4. She denies any abdominal pain. Denies any chest pain. IMPRESSION: Abdominal pain, probable gastritis. PLAN: The patient will return to the [facility]. She is to continue her current medications. Encouraged the staff to continue to monitor her I and O. If her symptoms return or worsen, she needs to follow up with her primary provider or return to the ER. She and the prison verbalized understanding. VAISHALI MONTANO APRN FOR MD ROBERTA GOODSON/og PATIENT'S NAME: JUAN CASTANEDA [facility] AGE: 86 Y [address] ROOM: [place] [address] LOCATION: [facility] ADMIT DATE: 08/19/2016 ER/Outpatient Report DISCHARGE DATE: 08/19/2016 FAMILY PHYSICIAN: Ekta Salaazr MD ATTENDING PHYSICIAN: Mariano Wade /[id number] d: 08/20/16 0145 t: 08/23/16 1910, OUTPATIENT REPORT
[~2016-08-19 17:54] MED LIST changes: -ALOE VESTA226 GM TOP; -ASPIRIN LO-DOSE81 MG PO; -ATIVAN 0.5MG0.5 MG PO
[2016-08-19 18:19] LABS: BLOOD URINE NEGATIVE /UL (NEGATIVE); COLOR URINE YELLOW (YELLOW); GLUCOSE URINE NEGATIVE (NEGATIVE); KETONE URINE 5 mg/dL (NEGATIVE); LEUKOCYTES URINE NEGATIVE /UL (NEGATIVE); NITRITE URINE NEGATIVE (NEGATIVE); PROTEIN URINE 30 mg/dL (NEGATIVE); SPEC GRAVITY URINE 1.025 (1.003-1.035); UROBILINOGEN URINE 1 mg/dL (NORMAL)
[2016-08-19 18:22] LABS: TURBIDITY URINE CLEAR (CLEAR)
[2016-08-19 18:37] LABS: BACTERIA URINE NEGATIVE (NEGATIVE); CRYSTALS URINE CALCIUM OXALATE (NEGATIVE); EPITHELIAL URINE 0-2 #/HPF (NEGATIVE); RBC URINE RARE #/HPF (NEGATIVE); WBC URINE RARE #/HPF (NEGATIVE)
[2016-08-19 18:38] LABS: AMORPHOUS URINE 1+ (NEGATIVE); HYALINE CAST URINE 0-2 #/LPF (NEGATIVE); MUCUS URINE 1+ (NEGATIVE)
[2016-08-19 18:52] LABS: BASOPHIL % 0.4 %; EOSINOPHIL # 0.1 K/uL (0.0-0.5); EOSINOPHIL % 0.8 %; HEMATOCRIT 37.3 % (30.0-46.0); HEMOGLOBIN 12.3 g/dL (10.0-15.0); IMMATURE GRANULOCYTE % 0.3 %; LYMPHOCYTE # 2.1 K/uL (0.8-4.0); LYMPHOCYTE % 29.3 %; MCH 31.9 pg (27.0-34.0); MCV 96.9 fl (83.0-98.0); MONOCYTE # 0.7 K/uL (0.0-1.0); MONOCYTE % 10.3 %; NEUTROPHIL # (ANC) 4.2 K/uL (1.8-7.8); NEUTROPHIL % 58.9 %; NRBC % 0 /100WBC (0-0.00); PLATELET COUNT 219 K/uL (150-450); RBC 3.85 M/uL (3.00-5.00); WBC 7.1 K/uL (4.0-11.0)
[2016-08-19 19:11] LABS: ANION GAP 12.3 (10.0-19.0); CALCIUM 8.6 mg/dL (8.5-10.5); CREATININE 1.4 mg/dL (0.5-1.1); POTASSIUM 4.3 mMol/L (3.7-5.1); TOTAL PROTEIN 6.4 g/dL (6.0-8.4)
[2016-08-19 19:12] LABS: TOTAL BILIRUBIN 0.7 mg/dL (0.0-1.5)
== END 2016-08-19 20:37 | disposition disaster alternative care site (69) ==
LOC: GMED 17:54
PROVIDERS: Nurse Practitioner Family
PROC: 0T9B70Z Drainage of Bladder with Drainage Device, Via Natural or Artificial Opening (ICD-10-PCS; principal; 2016-08-19)
DX: R10.84 Generalized abdominal pain (principal); E03.9 Hypothyroidism, unspecified; F32.9 Major depressive disorder, single episode, unspecified; I12.9 Hypertensive chronic kidney disease with stage 1 through stage 4 chronic kidney disease, or unspecified chronic kidney disease; N18.9 Chronic kidney disease, unspecified; Z90.710 Acquired absence of both cervix and uterus; Z90.49 Acquired absence of other specified parts of digestive tract

== ENCOUNTER → 2016-08-19 | Outpatient (CLI) | payer MEDICARE, MEDICAID | END | disposition disaster alternative care site (69) | LOC: GAMB 17:30 | DX: R10.9 Unspecified abdominal pain (principal); N39.0 Urinary tract infection, site not specified; M10.9 Gout, unspecified; I10 Essential (primary) hypertension; E03.9 Hypothyroidism, unspecified; R19.7 Diarrhea, unspecified; Z79.899 Other long term (current) drug therapy | CPT/HCPCS: A0425; A0427; J3010; J7030 ==

== ENCOUNTER 2016-08-25 11:53 | Emergency (ER) | payer MEDICARE, MEDICAID ==
--- NOTE | ~2016-08-25 | ER ---
PATIENT'S NAME: JUAN CASTANEDA [facility] AGE: 86 Y [address] ROOM: [place] [address] LOCATION: ED ADMIT DATE: 08/25/2016 ER/Outpatient Report DISCHARGE DATE: 08/25/2016 FAMILY PHYSICIAN: Ekta Salazar MD ATTENDING PHYSICIAN: Mariano Wade Time of Arrival: 1153 hours. Time of Evaluation: 1200 hours. CHIEF COMPLAINT: Increased confusion. HISTORY OF PRESENT ILLNESS: This is an 86-year-old female, who presents to the ER from the residential with report of increased confusion today. The patient does have a history of dementia, but the staff at the residential feels like she is more confused than she normally is. The patient is a poor historian, but when you ask her if she has any pain, shortness of breath, or chest pain, she states that she does not have any and she does not know why she is here. The patient was recently evaluated for abdominal pain and she was sent back to the residential. She has not been running any fevers. No vomiting. ALLERGIES: PLEASE SEE MEDICATION LIST NURSE'S NOTES. MEDICATIONS: Please see medication list nurse's notes. PAST MEDICAL HISTORY: Hypertension, hypothyroidism, depression, chronic kidney disease stage III, and dementia. SOCIAL HISTORY: She lives at [facility]. REVIEW OF SYSTEMS: A 10-point review of systems was completed and was negative with the exception of those discussed in the HPI. PHYSICAL EXAMINATION: VITAL SIGNS: Blood pressure is 124/58, pulse 75, respirations 18, temperature 97.3 degrees tympanically, and saturations 95% on room air. [place] Coma Score is 15. GENERAL: Alert, calm, well-developed, 86-year-old, in no acute distress. HEENT: Head: Normocephalic. Eyes: Pupils are equal and reactive to light. PATIENT'S NAME: JUAN CASTANEDA [facility] AGE: 86 Y [address] ROOM: [place] [address] LOCATION: [facility] ADMIT DATE: 08/25/2016 ER/Outpatient Report DISCHARGE DATE: 08/25/2016 FAMILY PHYSICIAN: Ekta Salazar MD ATTENDING PHYSICIAN: Mariano Wade She does display moist mucous membranes. LUNGS: Clear to auscultation bilaterally. No wheezes or crackles. HEART: Regular rate and rhythm. ABDOMEN: Soft. It is nontender. She has good bowel sounds throughout. No masses are palpated. EXTREMITIES: She does have full range of motion of all limbs. She does have some bilateral edema noted to her lower extremities. She does have compression hose over her lower extremities. Gait was steady with assistance and she was able to walk from bed to a wheelchair. LABORATORY DATA AND X-RAYS: CBC: White count is 12.0, hemoglobin is 12.9, platelets are 197, and ANC is 9.6. CMS: Glucose is 102, BUN 43, creatinine 1.5, estimated GFR is 33, CPK is 62, CK-MB is 2.4, troponin I is less than 0.040, and proBNP is 2480. Urinalysis is negative for any infection. EKG shows sinus rhythm. IMPRESSION: 1. Chronic kidney disease stage III. 2. Dementia. ASSESSMENT AND PLAN: The patient rested comfortably here her entire stay. She remained pain-free while she was here. Her granddaughter was at her side. I did discuss her care with her granddaughter and she is agreeable for her to go back to the residential. We will have them follow up with her primary care physician in 1 to 2 days. The patient and patient's granddaughter understand and agree with care. CUATE KOVACS PA-C FOR MD RADHA GOODSON/og /[id number] d: t: 08/28/16 1211, OUTPATIENT REPORT
[~2016-08-25 11:53] MED LIST changes: -ALOE VESTA226 GM TOP; -ASPIRIN LO-DOSE81 MG PO; -ATIVAN 0.5MG0.5 MG PO
[2016-08-25 12:34] LABS: BLOOD URINE 10 /UL (NEGATIVE); COLOR URINE AMBER (YELLOW); GLUCOSE URINE NEGATIVE (NEGATIVE); KETONE URINE 5 mg/dL (NEGATIVE); LEUKOCYTES URINE 25 /UL (NEGATIVE); NITRITE URINE NEGATIVE (NEGATIVE); PROTEIN URINE 30 mg/dL (NEGATIVE); SPEC GRAVITY URINE 1.025 (1.003-1.035); TURBIDITY URINE CLEAR (CLEAR); UROBILINOGEN URINE 1 mg/dL (NORMAL)
[2016-08-25 12:37] LABS: BASOPHIL % 0.2 %; EOSINOPHIL % 0.1 %; HEMATOCRIT 38.6 % (30.0-46.0); HEMOGLOBIN 12.9 g/dL (10.0-15.0); IMMATURE GRANULOCYTE # 0.1 K/uL (0.0-0.3); IMMATURE GRANULOCYTE % 0.6 %; LYMPHOCYTE # 1.3 K/uL (0.8-4.0); LYMPHOCYTE % 10.7 %; MCH 32.2 pg (27.0-34.0); MCHC 33.4 gm/dL (32.0-36.5); MCV 96.3 fl (83.0-98.0); MONOCYTE % 8.7 %; MPV 8.9 fl (9.4-12.4); NEUTROPHIL # (ANC) 9.6 K/uL (1.8-7.8); NEUTROPHIL % 79.7 %; NRBC % 0 /100WBC (0-0.00); PLATELET COUNT 197 K/uL (150-450); RBC 4.01 M/uL (3.00-5.00); RDW-CV 15.4 % (11.9-14.6)
[2016-08-25 12:49] LABS: AMORPHOUS URINE 1+ (NEGATIVE); BACTERIA URINE NEGATIVE (NEGATIVE); EPITHELIAL URINE RARE #/HPF (NEGATIVE); RBC URINE RARE #/HPF (NEGATIVE); WBC URINE 0-2 #/HPF (NEGATIVE)
[2016-08-25 13:00] LABS: ALBUMIN 2.9 gm/dL (3.5-5.0); ALK PHOS 100 IU/L (33-138); ALT 18 IU/L (12-78); ANION GAP 16.1 (10.0-19.0); AST 23 IU/L (10-40); BLOOD UREA NITROGEN 43 mg/dL (6-24); CALCIUM 9.2 mg/dL (8.5-10.5); CHLORIDE 102 mMol/L (96-110); CO2 24 mMol/L (22-32); CPK 62 IU/L (21-215); CREATININE 1.5 mg/dL (0.5-1.1); ESTIMATED GFR (MDRD EQUATION) 33; POTASSIUM 4.1 mMol/L (3.7-5.1); SODIUM 138 mMol/L (135-145); TOTAL BILIRUBIN 0.7 mg/dL (0.0-1.5)
== END 2016-08-25 14:25 | disposition disaster alternative care site (69) ==
LOC: GMED 11:53
PROVIDERS: Physician Assistant Medical
DX: F03.90 Unspecified dementia, unspecified severity, without behavioral disturbance, psychotic disturbance, mood disturbance, and anxiety (principal); I12.9 Hypertensive chronic kidney disease with stage 1 through stage 4 chronic kidney disease, or unspecified chronic kidney disease; N18.3 Chronic kidney disease, stage 3 (moderate); E03.9 Hypothyroidism, unspecified; F32.9 Major depressive disorder, single episode, unspecified; Z79.899 Other long term (current) drug therapy

== ENCOUNTER → 2016-08-25 | Outpatient (CLI) | payer MEDICARE, MEDICAID ==
[~2016-08-25] MED LIST changes: +ALOE VESTA226 GM TOP; +ASPIRIN LO-DOSE81 MG PO; +ATIVAN 0.5MG0.5 MG PO
== END | disposition disaster alternative care site (69) ==
LOC: GAMB 11:36
DX: R53.1 Weakness (principal); E03.9 Hypothyroidism, unspecified; I10 Essential (primary) hypertension; Z79.899 Other long term (current) drug therapy; R41.0 Disorientation, unspecified
CPT/HCPCS: A0425; A0427

== ENCOUNTER 2016-08-29 19:29 | Inpatient (IN) | payer MEDICARE, MEDICAID ==
[~2016-08-29] VITALS: Ht 162.6 cm; Wt 73.9 kg
--- NOTE | ~2016-08-29 | HP ---
PATIENT'S NAME: JUAN CASTANEDA [facility] AGE: 86 Y [address] ROOM: [place] [address] LOCATION: [facility] ADMIT DATE: 08/29/2016 History & Physical DISCHARGE DATE: FAMILY PHYSICIAN: Ekta Salazar MD ATTENDING PHYSICIAN: Adis Kimble DATE OF SERVICE: ADDENDUM: PHYSICAL EXAMINATION: On the right groin, there is erythema, but is nontender and it seems like Leidy intertrigo. It is nontender. ASSESSMENT AND PLAN: Starting the patient on nystatin powder 1 application 3 times a day to the right groin area. MD SORAYA PONCE/og /[id number] D: [id number] T: 032 HISTORY & PHYSICAL
--- NOTE | ~2016-08-29 | CON ---
PATIENT'S NAME: JUAN PANIAGUA [facility] AGE: 86 Y [address] ROOM: [place] [address] LOCATION: [facility] ADMIT DATE: 08/29/2016 Consultation DISCHARGE DATE: FAMILY PHYSICIAN: Ekta Salazar MD ATTENDING PHYSICIAN: Adis Kimble DATE OF CONSULTATION: 08/30/2016 REFERRING PHYSICIAN: Adis Kimble MD LOCATION: [place] [address]. REASON FOR CONSULTATION: This is a palliative care referral for goals of care, dementia, and family support. HISTORY OF PRESENT ILLNESS: This 86-year-old female was admitted on 08/29/2016 with lethargy, fever, and vomiting. She has a history of dementia and was getting more lethargic and drowsy, poor oral intake, had vomited once, was running a low- grade fever, and was admitted to the hospital and was found to have a UTI. She had been in the hospital recently on 08/23 with abdominal pain and 07/31 with right groin abscess and a fall and had been in to the ER on 07/12/2016 with right ankle pain. Overall had been continued declining and had a weight loss of about 20 pounds since last admission, not eating, sleeping more, and getting weaker, just not hungry per her family, more confused at times. Currently, denies any pain, discomfort, shortness of breath, nausea, or vomiting. No appetite, not hungry. PAST MEDICAL HISTORY: Hypertension, dementia, hypothyroidism, chronic kidney disease stage 3, chronic bilateral lower extremity edema, and depression. ALLERGIES: NO KNOWN ALLERGIES. HOME MEDICATIONS: 1. Levothyroxine 50 mcg daily. 2. Albuterol sulfate 2.5 mg every 4 hours p.r.n. 3. Milk of magnesia 30 mL p.r.n. 4. Bisacodyl 10 mg suppository per rectum p.r.n., constipation. 5. MiraLAX 17 g daily p.r.n. 6. Aspirin 650 mg every 4 hours p.r.n. rectally and orally. 7. Currently started on nystatin topically t.i.d. to groin area. 8. Zosyn 3.375 IV every 8 hours. PATIENT'S NAME: JUAN PANIAGUA [facility] AGE: 86 Y [address] ROOM: [place] [address] LOCATION: [facility] ADMIT DATE: 08/29/2016 Consultation DISCHARGE DATE: FAMILY PHYSICIAN: Ekta Salazar MD ATTENDING PHYSICIAN: Adis Kimble SOCIAL HISTORY: She is . Has 5 children, 2 daughters and 3 sons. Most live close by. Had been living at assisted living facility, [facility], and is looking to go to [facility]. No alcohol or smoking history. FAMILY HISTORY: Mother had a blood clot after car accident. Father of old age. SURGICAL HISTORY: Cholecystectomy, hysterectomy, right knee surgery, and appendectomy. REVIEW OF SYSTEMS: A 10-point review of systems is done and is negative except as mentioned in HPI and listed below. GI: No appetite. Weight loss of about 21 pounds. Last bowel movement 0521 hours. GENERAL: Alert to name and place, not date and time. Recognizes family members. In no acute distress. SKIN: Warm and dry. Color pale. HEENT: Head, normocephalic and atraumatic. Sclerae are nonicteric. Conjunctivae are pale pink. Mouth is pink and moist without exudate. LYMPH: No cervical adenopathy or thyromegaly. RESPIRATORY: Clear to auscultation bilaterally. Breath sounds even and regular. CARDIAC: S1, S2 without murmurs or bruits. NEUROLOGICAL: Grossly intact. No deficits. MUSCULOSKELETAL: Appropriate range of motion. Decreased muscle mass in lower extremities. EXTREMITIES: No cyanosis or deformities. Palliative performance scale is 40%, mainly in bed, unable to do most activities, total care, reduced intake, drowsy with some periods of confusion. IMPRESSION: 1. Confusion. 2. Weakness. 3. Fatigue. 4. Anorexia. 5. Early satiety. PLAN: Met with medical power of district attorney, Shagufta Paniagua. She states that both she and her are her medical power of district attorney. They do have an advanced directive naming them power of district attorney. She will get me a copy of that. PATIENT'S NAME: JEREMY PANIAGUAINE Nikhil [facility] AGE: 86 Y [address] ROOM: [place] [address] LOCATION: [facility] ADMIT DATE: 08/29/2016 Consultation DISCHARGE DATE: FAMILY PHYSICIAN: Ekta Salazar MD ATTENDING PHYSICIAN: Adis Kimble Also met with daughters, Lou and Jessica, by phone. Discussed overall chronic condition, dementia, the patient's declining a lot over the past few months, the weight loss of 20 some pounds, increase falling, trouble swallowing, recent UTI, Speech Therapy recommending thickened nectar liquids, and the patient being incontinent of bowel and bladder. Discussed stages of dementia and entering advanced stage with having trouble swallowing, falling, UTIs, and high risk for aspiration pneumonia. Discussed hospice criteria and dementia. The patient is borderline qualifying for hospice, but is getting closer. Answered questions and concerns on the patient's values and goals and in regard to artificial nutrition in advanced dementia. Overall, daughter and [id number] have a good understanding of the patient's condition and are realistic. CODE STATUS AND ADVANCED DIRECTIVE: 1. The patient is currently a do not resuscitate/do not intubate. She has told family she does not want any aggressive treatments done when she was able to be coherent, Shagufta will get us a copy of advanced directive for our chart. Also discussed the POLST (Physician's Order for Life- Sustaining Treatment) form with family, gave a copy to Shagufta and she will have all family members discuss it and will contact me as far as getting back to completing a POLST form. GOALS OF CARE: 1. Continue treatment for UTI. 2. Get back to long term with skilled care. 3. Talk with family on POLST form and possibly complete POLST form. We will continue to support the patient and family. We will follow on outpatient basis at the long term until the patient qualifies for hospice. Thank you for allowing me to assist the patient and family. Total time was 65 minutes with 55 minutes for counseling, coordination of care, education on goals of care, advanced directive, POLST form, and hospice. KRISTEN IZQUIERDO NP FOR MD SALLY MONDRAGON/modl /[id number] CC: Ekta Salazar MD d: 08/30/16 1805 t: 09/05/16 1449, CONSULTATION REPORT
--- NOTE | ~2016-08-29 | ER ---
PATIENT'S NAME: JUAN CASTANEDA [facility] AGE: 86 Y [address] ROOM: [place] [address] [place] [facility] ADMIT DATE: 08/29/2016 ER/Outpatient Report DISCHARGE DATE: FAMILY PHYSICIAN: Ekta Salazar MD ATTENDING PHYSICIAN: Adis Kimble TIME OF ADMIT: 1929 hours. TIME SEEN: 1940 hours. HISTORY OF PRESENT ILLNESS: This is an 86-year-old female with a history of senile dementia, hypothyroidism, and depression. She is in with complaint of nausea and vomiting when she [facility] and she has been more drowsy than usual, more confused than usual, and has had multiple falls over the past week. This is her third visit this week for similar problems. PAST MEDICAL HISTORY: Significant for senile dementia primarily, she also has a history of hypothyroidism, depression, and congestive heart failure. CURRENT MEDICATIONS: See list. REVIEW OF SYSTEMS: She had a fever prior to being transferred here [facility]. She had one episode of vomiting. She has been confused more than usual over the past several days. She was found on the floor of a room on one occasion, but she had a blanket and pillow with her and it was thought that she had laid down; however, she has some unexplained bruising of her left leg. She has had a 15- pound weight loss over the past month. SOCIAL HISTORY: She is a nonsmoker. She lives in an assisted living. PHYSICAL EXAMINATION: GENERAL: Alert, cooperative female in no acute distress. She is oriented to person and place. SKIN: Warm and dry. Color was normal. HEAD, EARS, EYES, NOSE, AND THROAT: Normal. NECK: Supple. HEART: Regular rate and rhythm without murmur. LUNGS: Clear. She had basilar rales audible bilaterally. PATIENT'S NAME: JUAN CASTANEDA [facility] AGE: 86 Y [address] ROOM: [address] [address] [place] [facility] [place]MIT DATE: 08/29/2016 ER/Outpatient Report DISCHARGE DATE: FAMILY PHYSICIAN: Ekta Salazar MD ATTENDING PHYSICIAN: Adis Kimble ABDOMEN: Soft. There were no discrete masses, but dilated loops of bowel were palpable throughout her abdomen. There is no localized tenderness. BACK: Had no CVA tenderness. EXTREMITIES: She had a bruising noted on her left lower leg just below the knee and left great toe. NEUROLOGIC: She is awake and alert. She is oriented to person and place. She had no focal, motor, or sensory deficits. ER COURSE: CBC revealed a mildly elevated white count of 12.9, was otherwise unremarkable. Lactate was slightly elevated at 2.5. Urinalysis revealed 20 wbc's per high-power field, one moderate bacteria. Procalcitonin was elevated at 0.2. ASSESSMENT: 1. Urinary tract infection. 2. Multiple falls. 3. Worsening confusion. PLAN: Admit to the hospitalist, Dr. Kimble was called, who arrived promptly, evaluated the patient and made arrangements to admit the patient. Chest x-ray obtained in the emergency department was negative. LEEANN LANE MD JDB/modl /[id number] d: 08/30/16 0555 t: 09/01/16 0601, OUTPATIENT REPORT
--- NOTE | ~2016-08-29 | HP ---
PATIENT'S NAME: JUAN CASTANEDA [facility] AGE: 86 Y [address] ROOM: [place] [address] LOCATION: [facility] ADMIT DATE: 08/29/2016 History & Physical DISCHARGE DATE: FAMILY PHYSICIAN: Ekta Salazar MD ATTENDING PHYSICIAN: Adis Kimble DATE OF SERVICE: CHIEF COMPLAINT: Lethargy, fever, and vomiting. HISTORY OF PRESENT ILLNESS: This is an 86-year-old female, who has dementia at baseline and is a very poor historian. The story is directly obtained from the patient's daughters at the bedside, and I also personally called the place where the patient lives at the [facility]. I talked to the staff over there to get a history. The story is that for the last few days, the patient has been having poor oral intake and becoming more sleepy and drowsy and on the day of admission, the staff was giving her some medication but the patient refused to take. But when she finally took the medication, she choked and then she vomited once. Then, the patient was also found to have a low-grade temperature. Because of the fever and one episode of vomiting and also this lethargic and poor oral intake, the patient was brought here to the ER for evaluation. Upon further questioning, recently about a week ago, the patient also had a fall at [facility]. At that time, the patient did not hit her head and did not lose consciousness. The patient denies any chest pain or shortness of breath or palpitation, but could not really tell me if she has any dysuria or urinary frequency or urgency. The patient is a poor historian due to her dementia. REVIEW OF SYSTEMS: All other systems are reviewed and negative, except those mentioned in the history of present illness. PAST MEDICAL HISTORY: 1. Hypertension. 2. Hypothyroidism. 3. CKD, stage 3. 4. Dementia. 5. Chronic bilateral lower extremity edema. 6. Depression. ALLERGIES: NO KNOWN DRUG ALLERGIES ACCORDING TO HER AND TO THE MEDICAL CHART. PATIENT'S NAME: JUAN CASTANEDA [facility] AGE: 86 Y [address] ROOM: [place] [address] LOCATION: [facility] ADMIT DATE: 08/29/2016 History & Physical DISCHARGE DATE: FAMILY PHYSICIAN: Ekta Salazar MD ATTENDING PHYSICIAN: Adis Kimble MEALLY MEDICATIONS: Currently, it has been reconciled. SOCIAL HISTORY: The patient denies any cigarette, alcohol, or illegal drug use. The patient ambulates with a walker at baseline, but is on and off. PAST SURGICAL HISTORY: 1. Status post cholecystectomy. 2. Status post total abdominal hysterectomy and bilateral salpingo- oophorectomy. 3. Status post appendectomy. 4. Status post right knee surgery in the past from trauma. 5. Status post bilateral cataract surgery. FAMILY HISTORY: Both parents from advanced age from a cause that she could not remember. PHYSICAL EXAMINATION: VITAL SIGNS: At the time of my dictation, temperature 97.4, heart rate 81, respirations 13, blood pressure 125/68, and saturation 96% on room air. GENERAL APPEARANCE: Alert and disoriented to place and time, but not to people. In no acute distress. HEENT: Pupils are equally round and reactive to light. Extraocular muscles intact. Nasal turbinates are normal bilaterally. Dry oral mucosa. NECK: No JVD. CARDIOVASCULAR: Regular rate and rhythm. Normal S1, S2. No murmur. No rubs. No gallops. RESPIRATORY: Clear to auscultation. No rhonchi, no rales, no wheezing, and no crackles. ABDOMEN: Soft, nontender, and nondistended. Normal bowel sounds. No hepatosplenomegaly. No palpable mass. Bowel sounds present. EXTREMITIES: Bilateral pitting edema +1 in both lower extremities. This is chronic and much better than her usual baseline according to the patient's daughter at the bedside. NEUROLOGIC: Alert, but disoriented due to her dementia. Otherwise, nonfocal. SKIN: There is ecchymosis in the left knee and also in the left second toe due to her recent fall. MUSCULOSKELETAL: Range of motion intact. No joint pain. No muscle pain. LABORATORY DATA: Lactic acid 1.2. Troponin less than 0.04. CPK 141, proBNP 3490. White blood cell 12.9, hemoglobin 13, hematocrit 38.2, MCV 94.8, platelet 247. Glucose 110, BUN 40, creatinine 1.4, sodium 132, potassium 4.0, chloride 99, CO2 of PATIENT'S NAME: JUAN CASTANEDA [facility] AGE: 86 Y [address] ROOM: [address] [address] LOCATION: [facility] ADMIT DATE: 08/29/2016 History & Physical DISCHARGE DATE: FAMILY PHYSICIAN: Ekta Salazar MD ATTENDING PHYSICIAN: Adis Kimble 22, calcium 9.1, total protein 6.6, albumin 2.5, AST 45, ALT 30, alkaline phosphatase 107, total bilirubin 0.6, anion gap 15, globulin 4.1, GFR 35. Urinalysis showed 25 leukocytes, negative nitrite, moderate bacteria, white blood cells 10 to 20. Lipase 163, CK-MB 3.3. Free T4 and TSH were done back on August 19, 2016, and was 1.4 of free T4 and 0.5 of TSH. Procalcitonin today on August 29, 2016, shows 0.2. IMAGING STUDIES: Chest x-ray: Official reading is pending; but based on my review, unremarkable. X-ray of the left foot: Official reading is pending. CT of the brain without contrast on admission based on the preliminary report was unremarkable. ASSESSMENT AND PLAN: 1. Regarding her acute encephalopathy, secondary to urinary tract infection and possible aspiration pneumonitis or pneumonia: I will treat her with IV Zosyn which can cover both urinary tract infection and also probable and questionable aspiration pneumonia or pneumonitis. Collect urine culture and blood culture 2 sets. Hydration with IV fluids. Follow up on the official reading of the chest x-ray and also on the CT of the head without contrast in the morning when they become finalized. Fall precaution. The patient can have a cardiac diet if she passed the bedside dysphagia screen. If she fails, she will be n.p.o. Either way, I am going to consult Speech and Swallow in the morning for evaluation given the patient choked on the p.o. and vomited once. Therefore, she is also at high risk of aspiration and also she will be on aspiration precaution. Further plan depends on clinical course. Blood culture 2 sets already obtained. 2. Regarding her recent fall with ecchymosis in the left knee and the left foot: Range of motion is intact. X-ray of the left knee and left foot, official report is pending. The patient denies any pain. Please follow up with official report to rule out any fracture. 3. Regarding her chronic kidney disease, stage 3: Currently at baseline. 4. Hypothyroidism: The patient had a TSH checked which was normal. Continue the current home dose of levothyroxine. 5. Hypertension: I will hold the blood pressure medication for now in the setting of urinary tract infection. 6. Regarding her deep venous thrombosis prophylaxis: The patient will be on heparin subcu 3 times a day. PATIENT'S NAME: JUAN CASTANEDA [facility] AGE: 86 Y [address] ROOM: [place] [address] LOCATION: [facility] ADMIT DATE: 08/29/2016 History & Physical DISCHARGE DATE: FAMILY PHYSICIAN: Ekta Salazar MD ATTENDING PHYSICIAN: Adis Kimble 7. Code Status: She is a DNR/DNI. I had a lengthy talk with the family member, the daughter, whose name is Marcia, phone number is [phone], and the daughter is expressing concern about the decline in the patient's functional status and worsening dementia, and I offered the family about palliative care to cope with the dementia progression and family gladly agreed. Therefore, I will be placing a consult for the Palliative Care to help the family cope with the patient's underlying dementia and provide family support. Further plan depends on clinical course. Time spent on the day of admission and care 50 minutes including chart review, interviewing the patient, examining the patient, addressing all the questions and concerns that the patient and family members had. I also went over the plan of care in detail with the patient and also the family member and they do not have any quesitons at the moment. Further plan depends on clinical course. ADIS KIMBLE MD CC/og /[id number] D: 316 T: HISTORY & PHYSICAL
--- NOTE | ~2016-08-29 | DS ---
PATIENT'S NAME: JUAN CASTANEDA [facility] AGE: 86 Y [address] ROOM: [address] [address] LOCATION: [facility] ADMIT DATE: 08/29/2016 Discharge Summary DISCHARGE DATE: 09/02/2016 FAMILY PHYSICIAN: Ekta Salazar MD ATTENDING PHYSICIAN: Adis Kimble PRINCIPAL DIAGNOSES: 1. Acute encephalopathy. 2. Urinary tract infection. 3. Concern for possible aspiration pneumonia. 4. Acute kidney injury on chronic kidney disease 3. 5. Dementia. 6. Essential hypertension. HOSPITAL COURSE: Please reference any of the admitting data to the history and physical as dictated by Dr. Adis Kimble. Briefly, this is an 86-year-old female who was admitted with acute confusion. CT head without contrast did not show any intracranial abnormalities. She had an infectious workup, which found a positive urinalysis. Elevated white count of nearly 13,000. A mildly elevated lactate of 2.5. Her procalcitonin was 0.20. There were concerns for aspiration pneumonia as well. She was not requiring oxygen, however. Imaging of her chest showed no discrete focal infiltrate; however, she was covered empirically with IV Zosyn. She was given IV fluid resuscitation. She was placed on a sepsis order set. She had improved over the first 24-hour period. She had a speech and swallow evaluation showing requirements for mechanical soft foods and one-to-one feedings as well as aspiration precautions. Her electrolytes were optimized. She did wake up and improve significantly more toward her baseline dementia. She did have a bout of diarrhea, which was C. diff negative. Probiotic was added to her regimen. Her white count normalized on serial examination. She remained afebrile. Cognitive state had improved. She also had an acute kidney injury upon admission with a creatinine of 1.4 and a BUN of 40. This improved with IV hydration and normalized on the day of dismissal. Blood cultures remained negative. Urine culture came back lactobacillus species, greater than 100,000 count. She finished IV antibiotics through the date of discharge. She was ordered physical, occupational, speech therapy for restorative cares. She was given DVT prophylactic heparin during her hospitalization and pneumatic compression devices were utilized as well. Care Management was involved for arrangement of discharge back [facility] the [facility] the [facility] PATIENT'S NAME: JUAN CASTANEDA [facility] AGE: 86 Y [address] ROOM: [address] [place] [address] LOCATION: [facility] ADMIT DATE: 08/29/2016 Discharge Summary DISCHARGE DATE: 09/02/2016 FAMILY PHYSICIAN: Ekta Salazar MD ATTENDING PHYSICIAN: Adis Kimble. RADIOLOGIC IMAGING: CT of the brain without contrast showed no evidence of any acute intracranial abnormality. Chest x-ray showed a small calcified granuloma in the left lung. There was no discrete focal infiltrate, pleural effusion, or pneumothorax identified. Left foot x-ray for foot pain showed degenerative changes at the first MTP joint with at least subluxation of the joint space at the fifth MTP. There was no displaced fracture site. There was bony osteopenia. Left lower leg, 2-view, x-ray showed no evidence of fracture or dislocation, with degenerative changes at the knee and bony osteopenia. LABORATORY FINDINGS: Initial white count of nearly 13,000, normalized to 6000 on the date of discharge; hemoglobin of 10.9 and hematocrit of 33.5 and platelet count of 220. Chemistry panel showed initial creatinine of 1.4, normalizing to 0.9. Remainder of chemistry panel on 09/02 showed a sodium of 147, potassium of 3.6, chloride of 113, CO2 of 23, calcium of 8.4, total protein 6.0, albumin of 2.2, AST of 29, ALT of 25, alkaline phosphatase of 93, total bilirubin of 0.8, phosphorus of 1.8 that was replaced, anion gap of 14.6. Urinalysis showed clear yellow urine with specific gravity of 1.015, a pH of 5.0, leukocytes 25, nitrites negative, protein 30, glucose negative, ketone negative, urobilinogen 1, bilirubin negative, blood 10, white blood cells 10 to 20, red blood cells 2 to 5, epithelial 0 to 2, bacteria moderate, amorphous 1+, hyaline casts 0 to 2. Urine culture showed lactobacillus, greater than 100,000 count. Amylase and lipase were normal. Procalcitonin level was 0.20 and 0.19 respectively. Lactate level initially was 2.5, repeat was 1.6 and 1.4. Cardiac markers were negative. ProBNP was mildly elevated at 3490. DISCHARGE MEDICATIONS: 1. Levothyroxine 50 mcg p.o. every day before breakfast. 2. Nystatin 15 g powder, apply topically 3 times daily to the affected areas for 2 weeks. 3. Florastor 250 mg p.o. twice daily for 2 weeks. 4. Acetaminophen 650 mg p.o. every 4 hours as needed for pain. 5. Acetaminophen 650 mg p.o. twice daily. 6. Dulcolax 10 mg per rectum every day as needed. 7. Metoprolol tartrate 12.5 mg p.o. twice daily. 8. Lisinopril 5 mg p.o. every day. 9. Milk of magnesia 30 mL p.o. every day as needed. 10. MiraLax 17 g p.o. every day as needed. 11. Aloe [place] 1 application topically as needed to the redness, skin PATIENT'S NAME: JUAN CASTANEDA [facility] AGE: 86 Y [address] ROOM: [place] [address] LOCATION: [facility] ADMIT DATE: 08/29/2016 Discharge Summary DISCHARGE DATE: 09/02/2016 FAMILY PHYSICIAN: Ekta Salazar MD ATTENDING PHYSICIAN: Adis Kimble [facility] [place]. DISCHARGE INSTRUCTIONS: The patient will be discharged to the [facility]. She will remain under the care of Dr. Ekta Salazar at [facility]. We request that she has a followup with her in 1 week with followup labs to include a CBC and BMP. Code status is do not resuscitate. Diet is regular with aspiration precautions. Weightbearing is as tolerated with therapies to include occupational and physical to evaluate and treat the patient. Monitor vital signs as well as oxygen saturations, if they fall below 90% to call the primary care provider. Rehab potential is fair. Discharge potential is fair. It was elected at the time of discharge for the patient to stop antibiotic therapy as she had completed a 5-day course. If she has recurrence of fevers or changes in mental status, to call her primary care provider, or if condition worsens, to go to the emergency room. Thank you for allowing us to participate in the care of this patient while at [facility]. LEEANN MACK APRN, APRN FOR MD CHOLO STEELE/modl /[id number] CC: Ekta Salazar MD d: t: 09/03/16 0851, DISCHARGE SUMMARY
[~2016-08-29 19:29] MED LIST changes: -ALOE VESTA226 GM TOP; -ASPIRIN LO-DOSE81 MG PO; -ATIVAN 0.5MG0.5 MG PO
[2016-08-29 20:52] LABS: BASOPHIL % 0.2 %; HEMATOCRIT 38.2 % (30.0-46.0); IMMATURE GRANULOCYTE # 0.2 K/uL (0.0-0.3); IMMATURE GRANULOCYTE % 1.3 %; LYMPHOCYTE # 0.6 K/uL (0.8-4.0); LYMPHOCYTE % 4.5 %; MCH 32.3 pg (27.0-34.0); MCV 94.8 fl (83.0-98.0); MONOCYTE # 0.9 K/uL (0.0-1.0); MONOCYTE % 6.7 %; MPV 9.1 fl (9.4-12.4); NEUTROPHIL # (ANC) 11.3 K/uL (1.8-7.8); NEUTROPHIL % 87.3 %; NRBC % 0 /100WBC (0-0.00); PLATELET COUNT 247 K/uL (150-450); RBC 4.03 M/uL (3.00-5.00); WBC 12.9 K/uL (4.0-11.0)
[2016-08-29 20:52] LABS: BILIRUBIN URINE NEGATIVE (NEGATIVE); BLOOD URINE 10 /UL (NEGATIVE); COLOR URINE YELLOW (YELLOW); GLUCOSE URINE NEGATIVE (NEGATIVE); KETONE URINE NEGATIVE (NEGATIVE); LEUKOCYTES URINE 25 /UL (NEGATIVE); NITRITE URINE NEGATIVE (NEGATIVE); PROTEIN URINE 30 mg/dL (NEGATIVE); SPEC GRAVITY URINE 1.015 (1.003-1.035); TURBIDITY URINE CLEAR (CLEAR); UROBILINOGEN URINE 1 mg/dL (NORMAL)
[2016-08-29 21:12] LABS: ALBUMIN 2.5 gm/dL (3.5-5.0); CALCIUM 9.1 mg/dL (8.5-10.5); CREATININE 1.4 mg/dL (0.5-1.1); TOTAL BILIRUBIN 0.6 mg/dL (0.0-1.5); TOTAL PROTEIN 6.6 g/dL (6.0-8.4)
[2016-08-29 21:13] LABS: CPK 141 IU/L (21-215)
[2016-08-29 21:27] LABS: AMORPHOUS URINE 1+ (NEGATIVE); BACTERIA URINE MODERATE (NEGATIVE); EPITHELIAL URINE 0-2 #/HPF (NEGATIVE); HYALINE CAST URINE 0-2 #/LPF (NEGATIVE)
[2016-08-30] MEDS ORDERED: TYLENOL325 MG PO (00:24)
[2016-08-30] MEDS ORDERED: ALOE VESTA226 GM TOP (00:28)
--- NOTE | 2016-08-30 03:30 | NUR ---
Patient admitted for UTI and long term placement. correction reported they found patient on the floor asleep with her blanket Friday. Due to patient's history of dementia they though she had laid down on the floor to sleep. Patient's behavior during the week not her normal. Her daughter concerned and brought her to the ER. It was determined patient did fall due to multiple bruises on her left side. Patient oriented to name and place but not month or year.
--- NOTE | 2016-08-30 04:39 | NUR ---
Shift Summary: Patient admitted for UTI. Had a fall Friday night with bruises along left side of body. She is confused and disoriented to time. Has edema to lower legs. Is incontinent of urine. Wears briefs. Has yeasty red rash to bilateral groin/magdaleno area and buttocks. Needs a Nursing Swallow assessment (sheet on the bedside table) this morning before meal ordered. She denies having any pain. CM to assist family in fdc placement.
[2016-08-30 08:08] LABS: HEMATOCRIT 34.8 % (30.0-46.0); HEMOGLOBIN 11.9 g/dL (10.0-15.0); MCH 32.1 pg (27.0-34.0); MCHC 34.2 gm/dL (32.0-36.5); MCV 93.8 fl (83.0-98.0); MPV 8.9 fl (9.4-12.4); RBC 3.71 M/uL (3.00-5.00); WBC 12.3 K/uL (4.0-11.0)
[2016-08-30 08:28] LABS: ALBUMIN 2.2 gm/dL (3.5-5.0); ANION GAP 16.7 (10.0-19.0); CALCIUM 8.6 mg/dL (8.5-10.5); CREATININE 1.2 mg/dL (0.5-1.1); MAGNESIUM 1.7 mg/dL (1.8-2.6); POTASSIUM 3.7 mMol/L (3.7-5.1)
[2016-08-30 08:30] LABS: PHOSPHORUS 1.8 mg/dL (2.5-4.9); TOTAL BILIRUBIN 0.8 mg/dL (0.0-1.5)
--- NOTE | 2016-08-30 09:15 | NUR ---
Introduced self/role to patient, family not present. Wrote my name on the marker board. 0945 Gena with Palliative Care let me know [facility] was assessing patient right. 1140 Spoke with Kaya at [facility] faxed referral information. They are familiar with patient because they had planned to assess at [place] already. Could take patient today but not over the weekend. 1145 Spoke to Cecilia Bernstein she will see patient talk to the doctor and let me know if today is appropriate to discharge. 1300 Received a message from Cecilia that patient can't discharge today. Called [facility] and updated Lisa, will plan for a Friday dismissal. 1435 called [facility] and spoke to Gale ding. Called daughter Lou.
--- NOTE | 2016-08-30 16:55 | NUR ---
Significant Event: Patient alert to person and place but not to time/day. Patient NPO and had a bedside swallowing study. Started on a mechanical soft diet with nectar thick liquids. PT and OT here and patient up to the recliner with 2 assist this afternoon. Denies discomfort. Patient has been incontinent of urine x 2. Bilateral groin and magdaleno area red. Started on Nystatin powder tid. Follow up: 1:1 feeder. Patient will transfer to [facility] on Friday.
--- NOTE | 2016-08-31 03:50 | NUR ---
Significant Event:pt alert. non verbal for the most part. does moan at times. pt leans to the right. transfers with 2 assist gait belt walker.incont of bowel and bladder. small bm during shift. grion and buttcoks are very red in places. nystatin power/barrier applied to areas. pt iv to right ac running at 60ml/hr.iv antibiotic. pt needs assitance feeding. mouth swabbed for oral cares. bruises in numerous spots. Follow up:
[2016-08-31 05:13] LABS: BASOPHIL % 0.1 %; EOSINOPHIL % 0.1 %; HEMATOCRIT 29.5 % (30.0-46.0); IMMATURE GRANULOCYTE # 0.1 K/uL (0.0-0.3); IMMATURE GRANULOCYTE % 1.2 %; LYMPHOCYTE # 0.8 K/uL (0.8-4.0); LYMPHOCYTE % 11.5 %; MCH 31.9 pg (27.0-34.0); MCHC 33.9 gm/dL (32.0-36.5); MCV 94.2 fl (83.0-98.0); MONOCYTE # 0.6 K/uL (0.0-1.0); MONOCYTE % 8.8 %; MPV 8.8 fl (9.4-12.4); NEUTROPHIL # (ANC) 5.4 K/uL (1.8-7.8); NEUTROPHIL % 78.3 %; NRBC % 0 /100WBC (0-0.00); PLATELET COUNT 178 K/uL (150-450); RBC 3.13 M/uL (3.00-5.00); RDW-CV 15.2 % (11.9-14.6); WBC 6.9 K/uL (4.0-11.0)
[2016-08-31 05:27] LABS: ANION GAP 14.6 (10.0-19.0); CALCIUM 8.5 mg/dL (8.5-10.5); CREATININE 1.1 mg/dL (0.5-1.1); POTASSIUM 3.6 mMol/L (3.7-5.1)
--- NOTE | 2016-08-31 17:20 | NUR ---
Significant event: Patient is alert, mumbles when talking. Is non verbal on occasion. 1:1 feeder, has not ate well today. New IV started to left wrist with K+phos going at 25mls/hr. Mag and normal saline going in right AC. Turn q 2hours. Is incontinent. [facility] with nectar thick liquids. Redness to groin and buttocks, nystatin powder and moisture barrier applied. Refused PT today, worked with OT some. Is to go to [facility] on Friday. Cooperative with cares.
--- NOTE | 2016-09-01 04:25 | NUR ---
Significant Event: Patient orientated to self, forgetful. Answers questions in a soft voice, mumbles, or states she doesn't know. Incontinent of urine and had a smear of stool. IV fluids and zosyn continue. Repositioned q 2hours. Tylenol 650mg given at 1851 for facial grimancing and moaning when repositioned. Follow up: Continue to monitor.
[2016-09-01 05:08] LABS: BASOPHIL % 0.2 %; EOSINOPHIL % 0.2 %; HEMATOCRIT 30.7 % (30.0-46.0); HEMOGLOBIN 10.1 g/dL (10.0-15.0); IMMATURE GRANULOCYTE # 0.1 K/uL (0.0-0.3); IMMATURE GRANULOCYTE % 2.1 %; LYMPHOCYTE # 0.8 K/uL (0.8-4.0); LYMPHOCYTE % 14.1 %; MCH 31.6 pg (27.0-34.0); MCHC 32.9 gm/dL (32.0-36.5); MCV 95.9 fl (83.0-98.0); MONOCYTE # 0.3 K/uL (0.0-1.0); MONOCYTE % 6.2 %; MPV 8.5 fl (9.4-12.4); NEUTROPHIL # (ANC) 4.1 K/uL (1.8-7.8); NEUTROPHIL % 77.2 %; NRBC % 0 /100WBC (0-0.00); PLATELET COUNT 177 K/uL (150-450); RDW-CV 15.7 % (11.9-14.6); WBC 5.3 K/uL (4.0-11.0)
[2016-09-01 05:21] LABS: CALCIUM 7.9 mg/dL (8.5-10.5)
--- NOTE | 2016-09-01 19:29 | NUR ---
Significant event: Patient is alert and oriented to self. Forgetful. Mumbles when talking. Incontinent of urine and stool.Did have a small BM today. Iv to right Ac saline locked and left wrist, saline locked. Pt did get up to wheelchair today with 2-assist to visit with family in waiting room. Is a 1-1 feeder, mechanical soft and nectar thick liquids. Only does sips and bites. Does take med whole. Reposition q 2 hours. [facility]. Cooperative with cares.
--- NOTE | 2016-09-02 03:33 | NUR ---
Significant Event: Patient repositioned q 2hours, has been incontinent of urine and stool x3 for this shift. Pleasant and cooperative with cares. Orientated to self. Is to go to [facility] today. Continues on Zosyn. Mumbled speech at times, refused supper and eating poorly. Follow up: Discharge.
[2016-09-02 06:13] LABS: BASOPHIL % 0.3 %; EOSINOPHIL % 0.2 %; HEMATOCRIT 33.5 % (30.0-46.0); HEMOGLOBIN 10.9 g/dL (10.0-15.0); IMMATURE GRANULOCYTE # 0.2 K/uL (0.0-0.3); IMMATURE GRANULOCYTE % 3.1 %; LYMPHOCYTE # 0.6 K/uL (0.8-4.0); MCH 31.6 pg (27.0-34.0); MCHC 32.5 gm/dL (32.0-36.5); MCV 97.1 fl (83.0-98.0); MONOCYTE # 0.4 K/uL (0.0-1.0); MONOCYTE % 5.6 %; MPV 8.8 fl (9.4-12.4); NEUTROPHIL % 80.8 %; NRBC % 0 /100WBC (0-0.00); PLATELET COUNT 220 K/uL (150-450); RBC 3.45 M/uL (3.00-5.00); RDW-CV 15.9 % (11.9-14.6); WBC 6.2 K/uL (4.0-11.0)
[2016-09-02 06:27] LABS: ANION GAP 14.6 (10.0-19.0); CALCIUM 8.4 mg/dL (8.5-10.5); CREATININE 0.9 mg/dL (0.5-1.1); POTASSIUM 3.6 mMol/L (3.7-5.1)
--- NOTE | 2016-09-02 11:40 | NUR ---
Spoke to Kaya at [facility]. They can accept but needs to be before noon. 1200 Spoke to Olivia, c-diff is negative so can go. Called Kaya who will call me back. Was made inpatient 08-29-16. 1205 Kaya called back and they will be here at 1315 to get patient. Charge Olivia informed, she contacted [facility]. Let patient know, called daughter who will bring in clothes, PASRR placed in packet, nurse Gale given nurse to nurse number. 1350 Kaya called, their advanced practice nurse had to leave to go pick someone else up. Will be back at 1430. Doctor arrived on the floor around 1340. Olivia will fax orders, left cover sheet on the chart.
--- NOTE | 2016-09-02 12:27 | NUR ---
Significant Event:Pt denies pain. Pleasantly confused. Mechanical soft nectar thick liquids. Is a 1:1 feeder. 2 assist to recliner. coccyx sl reddened, aloe vesta used and repositioned q 2 hrs. Groins sl reddened. Inc bowel/bladder. Has 3 loose stools during the night and 2 this shift. CDiff negative. VS stable. Dc to [facility] at 1300. Follow up:
== END 2016-09-02 14:24 | DRG 177 ==
LOC: GMED 19:29 → GMSU 22:29
PROVIDERS: Emergency Medicine; Family Medicine; Nurse Practitioner Family; ADMIT Internal Medicine
DX: J69.0 Pneumonitis due to inhalation of food and vomit (principal); G93.40 Encephalopathy, unspecified; N17.9 Acute kidney failure, unspecified; I50.9 Heart failure, unspecified; I13.0 Hypertensive heart and chronic kidney disease with heart failure and stage 1 through stage 4 chronic kidney disease, or unspecified chronic kidney disease; F03.90 Unspecified dementia, unspecified severity, without behavioral disturbance, psychotic disturbance, mood disturbance, and anxiety; M79.672 Pain in left foot; B37.2 Candidiasis of skin and nail; N39.0 Urinary tract infection, site not specified; E03.9 Hypothyroidism, unspecified; E86.0 Dehydration; F32.9 Major depressive disorder, single episode, unspecified; R19.7 Diarrhea, unspecified; N18.3 Chronic kidney disease, stage 3 (moderate); S80.02XA Contusion of left knee, initial encounter; W19.XXXA Unspecified fall, initial encounter; R63.4 Abnormal weight loss; Z66 Do not resuscitate; Z91.81 History of falling
CPT/HCPCS: J1644; J1885; J1956; J2300; J2543; J2550; J3475; J7030; J7050

== ENCOUNTER → 2016-08-29 | Outpatient (CLI) | payer MEDICARE, MEDICAID ==
[~2016-08-29] MED LIST changes: +ALOE VESTA226 GM TOP; +ASPIRIN LO-DOSE81 MG PO; +ATIVAN 0.5MG0.5 MG PO
== END | disposition disaster alternative care site (69) ==
LOC: GAMB 19:12
DX: R53.1 Weakness (principal); E03.9 Hypothyroidism, unspecified; F03.90 Unspecified dementia, unspecified severity, without behavioral disturbance, psychotic disturbance, mood disturbance, and anxiety; I10 Essential (primary) hypertension; N18.2 Chronic kidney disease, stage 2 (mild); R40.20 Unspecified coma; R11.10 Vomiting, unspecified; Z79.899 Other long term (current) drug therapy
CPT/HCPCS: A0425; A0427; J1885; J2300; J2550

== ENCOUNTER → 2016-09-18 | Outpatient (CLI) | payer MEDICARE, MEDICAID ==
[~2016-09-18] MED LIST changes: +ALOE VESTA226 GM TOP; +ASPIRIN LO-DOSE81 MG PO; +ATIVAN 0.5MG0.5 MG PO
== END ==
LOC: LFPA 14:29
DX: R60.0 Localized edema (principal)

== ENCOUNTER 2016-09-20 19:40 | Inpatient (IN) | payer MEDICARE, MEDICAID ==
[~2016-09-20] VITALS: Ht 152.4 cm; Wt 77.7 kg
--- NOTE | ~2016-09-20 | HP ---
PATIENT'S NAME: JUAN CASTANEDA [facility] AGE: 86 Y [address] ROOM: [place] [address] LOCATION: GPCU ADMIT DATE: 09/20/2016 History & Physical DISCHARGE DATE: FAMILY PHYSICIAN: Ekta Salazar MD ATTENDING PHYSICIAN: Natahniel Villafana V DATE OF SERVICE: CHIEF COMPLAINT: Altered mental status. HISTORY OF PRESENT ILLNESS: The patient is an 86-year-old female, whose history is provided entirely by the family. She has medical problems as documented below, most significant of which is suspected developing dementia, for which she has been recently moved to a fdc. The patient has been brought to the hospital frequently in the course of the last month. She has been diagnosed with UTI as well as acute on chronic CKD. Today, the patient is being brought in due to essentially diminished mental status and decreased oral intake. The patient herself is not really volunteering any complaints. She denies any chest pain, shortness of breath, nausea, vomiting, diarrhea, or palpitations. The family also endorses a considerably worsened lower extremity edema as well as some upper extremity edema. Of note, the patient had an echocardiogram today, which demonstrated preserved left ventricular ejection fraction, no diastolic dysfunction, and moderate aortic regurgitation. In the ER, the patient's workup was remarkable for mildly elevated CPK, troponin, as well as a profoundly elevated proBNP and an EKG which shows some diffuse T-wave inversions. These inversions do in fact appear to be new compared with EKGs done earlier in the year, as interpreted by me. REVIEW OF SYSTEMS: All systems have been reviewed and are negative aside from pertinent positives mentioned above. PAST MEDICAL HISTORY: As extracted from our records is significant for documented CKD stage 3, hypothyroidism, depression, and chronic lower extremity edema. PAST SURGICAL HISTORY: Significant for ankle fracture requiring fixation last year. PATIENT'S NAME: JUAN CASTANEDA [facility] AGE: 86 Y [address] ROOM: [place] [address] LOCATION: GPCU ADMIT DATE: 09/20/2016 History & Physical DISCHARGE DATE: FAMILY PHYSICIAN: Ekta Salazar MD ATTENDING PHYSICIAN: Nathaniel Villafana V CURRENT MEDICATIONS ARE: 1. Lasix 20. 2. Levothyroxine 50. 3. Lisinopril 5. 4. Tylenol. 5. Dulcolax. 6. Milk of magnesia. 7. MiraLAX. 8. Ativan 0.5 as needed. 9. Aspirin 81. FAMILY HISTORY: Reviewed and is noncontributory due to advanced age. SOCIAL HISTORY: Negative for ongoing toxic habits. PHYSICAL EXAMINATION: VITAL SIGNS: Blood pressure is 120/74, heart rate is in the 110s and 120s and regular, respirations are 20, temperature 98.3, and saturating 92% on room air. GENERAL: Appears as an elderly frail female, in no acute distress, but somewhat uncomfortable. NEUROLOGIC: Grossly nonfocal. EYES: Pupils are equal and reactive to light. LYMPHATIC: No cervical lymphadenopathy. ENDOCRINE: No thyromegaly. LUNGS: Clear to auscultation. HEART: Regular tachycardia with no appreciable murmurs, gallops, or rubs. ABDOMEN: Soft, nontender, nondistended with slightly diminished bowel sounds. VASCULAR: 2+ pedal pulses with 3+ pitting lower extremity edema, symmetric, as well as 1+ nonpitting upper extremity edema. MUSCULOSKELETAL: Unremarkable. PSYCHIATRIC: Cannot be assessed. SKIN: Warm and dry. DIAGNOSTIC DATA: Studies are significant for creatinine of 1.4 which appears to be up from baseline. CK-MB 6.1, troponin [place] 0.[place] [address]. CRP is 24. CBC is significant for platelets of 122. INR is unremarkable. Sedimentation rate is 37. Procalcitonin is 0.25. Urinalysis, unremarkable. Chest x-ray is grossly unremarkable. EKG shows sinus tachycardia at 110 beats per minute with T-wave inversions in leads V2, V3, and V4, which are new compared to prior studies. ASSESSMENT AND PLAN: PATIENT'S NAME: JUAN CASTANEDA [facility] AGE: 86 Y [address] ROOM: [place] [address] LOCATION: GPCU ADMIT DATE: 09/20/2016 History & Physical DISCHARGE DATE: FAMILY PHYSICIAN: Ekta Salazar MD ATTENDING PHYSICIAN: Nathaniel Villafana V This is an 86-year-old female who will be admitted with altered mental status. While the underlying etiology for her altered mental status is as of yet unclear, I am leaning towards a cardiac source given a profoundly elevated proBNP, lower extremity edema, and EKG changes. As such, we will address the following issues; 1. Acute non-systolic congestive heart failure. We will initiate diuresis and as the patient is considerably volume overloaded, we will monitor strict I's and O's as well as daily weights. 2. Mildly elevated cardiac enzymes with EKG abnormalities. We will follow up the 2nd set of cardiac enzymes and request a Cardiology evaluation to see if her heart failure may be related to an ischemic underlying etiology. If there is considerable elevation of her cardiac enzymes, we will start her on anticoagulation per cardiac protocol. 3. Elevated procalcitonin and recurrent urinary tract infections. At this point, the patient really does not appear to be infected to me. We will monitor her off antibiotics. 4. Chronic kidney disease with acute kidney injury. I do suspect a cardiorenal cause for her acute kidney injury. We will monitor renal function with diuresis. 5. Goals of care. The patient does have an accompanying out of hospital DNR/DNI, and we will respect those wishes. 6. Hypothyroidism. This appears to be well controlled, and the patient's TSH is 1.6. Additional management will depend on clinical course. Time dedicated to this patient's encounter is 35 minutes. MD WALKER COLBERT/og /[id number] D: [id number] T: [id number] HISTORY & PHYSICAL
--- NOTE | ~2016-09-20 | DS ---
PATIENT'S NAME: JUAN CASTANEDA [facility] AGE: 86 Y [address] ROOM: [address] [address] LOCATION: GPCU ADMIT DATE: 09/20/2016 Discharge Summary DISCHARGE DATE: 09/23/2016 FAMILY PHYSICIAN: Ekta Salazar MD ATTENDING PHYSICIAN: Nathaniel Villafana V PRIMARY DIAGNOSES: 1. Eyk-ET-bsmvwts elevation myocardial infarction. 2. Fluid overload. 3. Acute hypoxic respiratory failure. 4. Acute encephalopathy. 5. Chronic conditions includes acute kidney injury, chronic kidney disease, stage 3, and also Alzheimer's dementia. PRINCIPAL PROCEDURES DONE FOR THE PATIENT: None was indicated. LABORATORY DATA: On admission, troponin highest level obtained was 0.373. Pro-BNP on admission was 31,487, prior to discharge was 21,367. WBC on admission was 11.7, prior to discharge was 3.5; H and H on admission was 12.6/37.5, prior to discharge was 10.6/32.6; platelet on admission was 122, lowest level obtained was 84, prior to discharge was 116. Creatinine on admission was 1.4, prior to discharge was 1.1. Sodium was 130, was stable throughout the hospital stay, potassium as well on admission was 3.8, was repleted, prior to discharge was 4.1, bicarb on admission was 23, prior to discharge was 30. Liver function tests within normal limits. Magnesium on admission was 1.8, lowest level obtained was 1.7, prior to discharge was 2.0. Total cholesterol was 112, triglycerides 79, HDL 71, and LDL 26. Procalcitonin was 0.25. MICROBIOLOGY: Blood culture x2 sets, no growth. Urine culture, no growth at 2 days. RADIOLOGY: Chest x-ray, normal chest, no change. CT of the head without contrast, stable moderate senescent changes, no acute findings. Echocardiogram is reported as normal left ventricular contractility as noted. The estimated left ventricular ejection fraction is 60%. There is moderate aortic regurgitation by color Doppler. HOSPITAL COURSE: For history of present illness, please take a look at the H and P, which was done by Dr. Villafana. The patient was admitted for acute encephalopathy; however, during her workup, she was found to have an elevation in her troponin; so, she was also managed as a case of bnp-XY-lkhkfhk elevation MO. She was managed as per the ACS protocol pathway. She had a Cardiology consult and also was put on heparin for 48 hours. After Cardiology discussed her, Cardiology felt probably part of workup was contributing to the PATIENT'S NAME: JUAN CASTANEDA [facility] AGE: 86 Y [address] ROOM: [place] [address] LOCATION: GPCU ADMIT DATE: 09/20/2016 Discharge Summary DISCHARGE DATE: 09/23/2016 FAMILY PHYSICIAN: Ekta Salazar MD ATTENDING PHYSICIAN: Nathaniel Villafana V elevation in troponin, may also be due to the CKD, chronic kidney disease, stage 3 as the patient presented with acute kidney injury on chronic kidney disease; however, Cardiology did discuss with the family and they did not want any procedures to be done; and so, the patient was managed medically and her medications were optimized. She was also diuresed. Weight on admission was 76.5 and prior to discharge was 77.1. She did diurese pretty well with negative fluid balances for 2 days during her hospital stay. With progression in her hospital stay, her mentation improved though she did have advanced Alzheimer's dementia, but family also admit that her mentation had improved to her baseline. She did also present with some acute hypoxic respiratory failure and she was weaned off oxygen to room air. She was also visited by the Speech and Swallow Team who recommended for the patient to be on a pureed with honey liquids and meds crushed in applesauce. Cardiology continued to follow up with the patient and her medications were modified, after heparin was stopped, she was put on Plavix and started on metoprolol, which was tapered down ultimately to 12.5 mg b.i.d. On the day of discharge, her vital signs were stable and the patient was discharged back to the alf. DISCHARGE INSTRUCTIONS: The patient is to follow up with her PCP in the next 4 to 5 days. Daily standing weight. If weight is more than 30 pounds give extra Lasix 40 mg at noontime. MEDICATIONS ON DISCHARGE: Includes: 1. Aspirin 81 mg p.o. daily. 2. Synthroid 50 mcg p.o. daily before breakfast. 3. Lipitor 40 mg p.o. daily, new medication. 4. Plavix 75 mg p.o., new medication. 5. Ativan 0.5 mg p.o. 3 times daily. 6. Ativan 0.5 mg p.o. q.5 h. p.r.n. 7. Lopressor 12.5 mg p.o. twice daily. 8. Acetaminophen 650 mg p.o. q.4 h. p.r.n. 9. Acetaminophen 650 mg p.o. twice daily p.r.n. 10. Dulcolax 10 mg rectally daily p.r.n. 11. Milk of magnesia 30 mL p.o. daily p.r.n. 12. MiraLAX 17 g p.o. daily p.r.n. 13. Aloe [place] 1 application topically p.r.n. 14. Lasix new medication 40 mg b.i.d. p.o. for 2 days then Lasix 40 mg daily p.o. ANDREW NUNES MD ODO/jil PATIENT'S NAME: JUAN CASTANEDA [facility] AGE: 86 Y [address] ROOM: [place] [address] [facility] DATE: 09/20/2016 Discharge Summary DISCHARGE DATE: 09/23/2016 FAMILY PHYSICIAN: Ekta Salazar MD ATTENDING PHYSICIAN: Nathaniel Villafana V /[id number] d: 09/24/16 0040 t: 09/29/16 1413, DISCHARGE SUMMARY
--- NOTE | ~2016-09-20 | CON ---
PATIENT'S NAME: JUAN CASTANEDA [facility] AGE: 86 Y [address] ROOM: [place] [address] [facility] AD[facility] DATE: 09/20/2016 Consultation DISCHARGE DATE: FAMILY PHYSICIAN: Ekta Salazar MD ATTENDING PHYSICIAN: Nathaniel Villafana V REFERRING PHYSICIAN: Jordyn Pillai MD ADDENDUM: This is an addendum to the Cardiology consultation note. LABORATORY DATA AND IMAGING STUDIES: Her EKGs were reviewed which showed T-wave inversion in anterior leads and lateral leads which was new compared to old EKGs. She also has mild elevation in troponin, however, the patient has history of dementia and she denied any chest pain, despite repeated questioning. She also has a very poor functional status and she is nonambulatory at baseline. In view of her advanced age, dementia, very poor functional capacity, and absence of any anginal symptoms, she is not an ideal candidate for cardiac catheterization or PCI. Also patient does not want any aggressive measures including cardiac catheterization. We will maximize medical therapy as tolerated. We will start the patient on metoprolol and statin. Continue heparin. We will make further recommendations depending on her progress. ASSESSMENT: In the list of diagnosis, please add: 1. Moderate aortic insufficiency on recent echocardiogram. Her left ventricular systolic function is preserved. We will continue to monitor. MD LEELEE BROWN/og /[id number] d: 09/21/16 1716 t: 10/03/16 1748, CONSULTATION REPORT
--- NOTE | ~2016-09-20 | CON ---
PATIENT'S NAME: JUAN PANIAGUA [facility] AGE: 86 Y [address] ROOM: [place] [address] LOCATION: [facility]U ADMIT DATE: 09/20/2016 Consultation DISCHARGE DATE: FAMILY PHYSICIAN: Ekta Salazar MD ATTENDING PHYSICIAN: Nathaniel Villafana V REFERRING PHYSICIAN: Jordyn Pillai MD REFERRING PHYSICIAN: Nathaniel Villafana MD. REASON FOR CONSULT: Elevated troponin and fluid overload. HISTORY OF PRESENT ILLNESS: Ms Paniagua is a pleasant 86-year-old female who is a [facility]. The patient is a poor historian and history was obtained from the chart and previous notes. The patient has history of dementia and according to the note, she was recently [facility] to a [facility]. Last night, she was brought to the hospital due to essentially diminished mental status and decreased oral intake. The patient stated that she does not remember why she was brought to the hospital. She denied any chest pain. No history of shortness of breath. No history of nausea, vomiting, diarrhea, or fever. Per records, the patient has been treated for UTI recently. The patient was also noted to have worsening of lower extremity edema. Her workup showed elevated cardiac enzymes and worsening of renal functions and hence Cardiology was consulted. The patient is physically not very active. REVIEW OF SYSTEMS: The patient denied any recent change in vision. No history of dysphagia. No history of nausea, vomiting, diarrhea, or constipation. No history of fever. The patient has poor functional capacity and she is non ambulatory. PAST MEDICAL HISTORY: CKD stage 3, hypothyroidism, depression, chronic lower extremity edema, ankle fractures. FAMILY HISTORY: The patient denies any family history of premature coronary artery disease. SOCIAL HISTORY: The [facility] is [facility] a [facility]. OUTPATIENT MEDICATIONS: Include, 1. Lasix 20 mg daily. 2. Levothyroxine 50 mcg daily. PATIENT'S NAME: JUAN PANIAGUA [facility] AGE: 86 Y [address] ROOM: [place] [address] LOCATION: [facility]U ADMIT DATE: 09/20/2016 Consultation DISCHARGE DATE: FAMILY PHYSICIAN: Ekta Salazar MD ATTENDING PHYSICIAN: Nathaniel Villafana V 3. Lisinopril 5 mg daily. 4. Tylenol. 5. Dulcolax. 6. Milk of magnesia. 7. MiraLAX. 8. Ativan 0.5 mg as needed. 9. Aspirin 81 mg daily. PHYSICAL EXAMINATION: GENERAL: On examination, she is awake. She is oriented to time and place. VITAL SIGNS: Her pulse rate is 98 beats per minute and regular, blood pressure is 123/49 mmHg, respiratory rate 14, temperature 97.9. HEENT: Her head is atraumatic, normocephalic. Pupils are equal and reactive. Tongue is moist. NECK: No significant jugular venous distention is present. CARDIOVASCULAR: S1, S2 are audible. They are regular in rate and rhythm. Grade 3/6 ejection systolic murmur is audible in the left parasternal area and early diastolic murmur is audible in the left parasternal area. RESPIRATORY: Bilateral vesicular breath sounds are audible. Breath sounds are diminished on both sides. ABDOMEN: Mild distention is present. Abdomen is soft, nontender. Bowel sounds are present. Scar jacquelin from previous surgery is present. EXTREMITIES: Showed bilateral 3+ pedal edema. NEUROLOGIC: She is awake and follows simple commands. Generalized weakness noted. SKIN: Warm and dry. LABORATORY DATA: Sodium 141, potassium 3.3, chloride 103, CO2 29, glucose 83, calcium 8, BUN 30, creatinine 1.3. Total protein 6.4, albumin 2.4, globulin 4. Alkaline phosphatase 144, AST 45, ALT 31. Estimated GFR 39. Magnesium 1.7. Total cholesterol 112 triglycerides 79, HDL 71, LDL 26. Total CPK 5.2, troponin 0.36. ProBNP 25723. Peak troponin was 0.37 and first set of troponin was 0.34. TSH 1.63, free T4 1.3. White blood cell count 11.7, hemoglobin 12.6, platelet count 122. The patient had echocardiogram done yesterday which showed normal right ventricular and left ventricular systolic function with estimated ejection fraction of 60%. Moderate aortic regurgitation. Trivial tricuspid regurgitation and estimated pulmonary pressure is 36 mmHg. ASSESSMENT AND PLAN: 1. Elevated troponin. The patient denied any history of chest pain. Her troponin is mildly elevated. However; the trend is not suggestive of acute coronary syndrome. Her echocardiogram did not show any regional wall motion abnormalities. Overall, her presentation is not suggestive of acute coronary syndrome. The patient had worsening PATIENT'S NAME: JUAN PANIAGUA [facility] AGE: 86 Y [address] ROOM: [place] [address] LOCATION: [facility]PCU ADMIT DATE: 09/20/2016 Consultation DISCHARGE DATE: FAMILY PHYSICIAN: Ekta Salazar MD ATTENDING PHYSICIAN: Nathaniel Villafana V of renal function which could have contributed to elevated troponin. She is presently on heparin. However if her cardiac enzymes continue to remain stable, we will discontinue heparin. We will continue medical therapy with aspirin and consider addition of low-dose beta blockers. 2. Dependent edema. Her edema could be secondary to impaired renal function. Likely contributed by hypoalbuminemia, serum albumin level is 2.4. No clinical findings suggestive of decompensated heart failure. Agree with IV diuresis. Monitor intake and output and daily weights. Monitor electrolytes and monitor renal function. 3. Dementia. 4. Hypothyroidism. 5. Hypokalemia. The patient is getting potassium and magnesium replacement. 6. Hypoalbuminemia. We will monitor serum albumin level and replace if needed. Overall, the patient does not want any aggressive therapies including cardiac catheterization. The plan of care was discussed with Dr. Quintero and the nursing staff. We will follow the patient along with you. Thank you for allowing us in taking part in the care of this pleasant lady. MD LEELEE BROWN/og /[id number] d: 09/21/16 1522 t: 10/03/16 1745, CONSULTATION REPORT
[~2016-09-20 19:40] MED LIST changes: -ASPIRIN LO-DOSE81 MG PO; -ATIVAN 0.5MG0.5 MG PO
[2016-09-20 20:20] LABS: LACTATE 1.6 mEq/L (0.50-1.60)
[2016-09-20 20:23] LABS: BASOPHIL % 0.1 %; EOSINOPHIL % 0.1 %; HEMATOCRIT 37.5 % (30.0-46.0); HEMOGLOBIN 12.6 g/dL (10.0-15.0); IMMATURE GRANULOCYTE # 0.1 K/uL (0.0-0.3); IMMATURE GRANULOCYTE % 0.6 %; LYMPHOCYTE # 1.1 K/uL (0.8-4.0); LYMPHOCYTE % 9.3 %; MCH 32.6 pg (27.0-34.0); MCHC 33.6 gm/dL (32.0-36.5); MCV 96.9 fl (83.0-98.0); MONOCYTE # 0.9 K/uL (0.0-1.0); MONOCYTE % 7.7 %; MPV 9.5 fl (9.4-12.4); NEUTROPHIL # (ANC) 9.7 K/uL (1.8-7.8); NEUTROPHIL % 82.2 %; NRBC % 0 /100WBC (0-0.00); PLATELET COUNT 122 K/uL (150-450); RBC 3.87 M/uL (3.00-5.00); RDW-CV 17.7 % (11.9-14.6); WBC 11.7 K/uL (4.0-11.0)
[2016-09-20 20:24] LABS: BLOOD URINE 10 /UL (NEGATIVE); COLOR URINE YELLOW (YELLOW); GLUCOSE URINE NEGATIVE (NEGATIVE); KETONE URINE 5 mg/dL (NEGATIVE); LEUKOCYTES URINE 25 /UL (NEGATIVE); NITRITE URINE NEGATIVE (NEGATIVE); PROTEIN URINE 30 mg/dL (NEGATIVE); SPEC GRAVITY URINE 1.025 (1.003-1.035); TURBIDITY URINE 1+ (CLEAR); UROBILINOGEN URINE 1 mg/dL (NORMAL)
[2016-09-20 20:29] LABS: INR - (THERAPEUTIC) 1.15 (0.92-1.07); PROTIME 12.1 SECONDS (9.8-11.4); PTT 22 SECONDS (25-32)
[2016-09-20 20:33] LABS: WBC URINE 0-2 #/HPF (NEGATIVE)
[2016-09-20 20:34] LABS: BACTERIA URINE FEW (NEGATIVE); GRANULAR CASTS URINE 0-2 #/LPF (NEGATIVE); HYALINE CAST URINE 0-2 #/LPF (NEGATIVE); MUCUS URINE 1+ (NEGATIVE)
[2016-09-20 20:43] LABS: ALBUMIN 2.4 gm/dL (3.5-5.0); ANION GAP 16.8 (10.0-19.0); CALCIUM 9.1 mg/dL (8.5-10.5); CREATININE 1.4 mg/dL (0.5-1.1); MAGNESIUM 1.8 mg/dL (1.8-2.6); POTASSIUM 3.8 mMol/L (3.7-5.1); TOTAL BILIRUBIN 0.8 mg/dL (0.0-1.5); TOTAL PROTEIN 6.4 g/dL (6.0-8.4)
[2016-09-20] MEDS ORDERED: ATIVAN 0.5MG0.5 MG PO ×2 (23:21→23:22)
[2016-09-20] MEDS ORDERED: ASPIRIN LO-DOSE81 MG PO (23:54)
--- NOTE | 2016-09-21 02:22 | NUR ---
Pt is an 86 y/old female who was brought from [facility]. Admitted for Non-STEMI.Pt had been having mental status changes and granddaughter said she had "a change in breathing". Has history of CAD, HTN, Dementia, Kidney disease. Echo and EKG done today. Cardiac enzymes slightly elevated. Hep gtt started and dao placed. No known allergies.
--- NOTE | 2016-09-21 05:12 | NUR ---
Significant Event: Alert to self. Pt knows she's in the hospital but does not remember what town or year. Tearful and guarded. Denied pain. When asked how she is feeling, pt responds with "I don't know". VSS on 2L. SBP 110s. HR 90-110s. Hep gtt started @ 900 units with 4000 unit bolus. Toribio placed. Lasix 40mg iv given, 225 ml output. Very weak, wheelchair bound. Turn q 2 hours. Follow up: PT/OT to consult. Speech to consult.
[2016-09-21 07:52] LABS: ANION GAP 12.3 (10.0-19.0); CREATININE 1.3 mg/dL (0.5-1.1); MAGNESIUM 1.7 mg/dL (1.8-2.6); PHOSPHORUS 2.6 mg/dL (2.5-4.9); POTASSIUM 3.3 mMol/L (3.7-5.1)
--- NOTE | 2016-09-21 16:29 | NUR ---
Significant Event: VSS AND 1L/NC. AFEBRILE. DENIES PAIN. HEPARIN GTT CONTINUES PER PROTOCOL AT 900 UNITS/HR. IV MG AND KCL REPLACED. CARDIOLOGY CONSULTED, TRENDING ENZYMES AND EKGS; PLAN FOR NO HEART CATH AND TX MEDICALLY. ST CONSULTED AND PUREED DIET WITH HONEY THICKENED CONSISTENCY, 1:1 FEEDER. MEDS CRUSHED WITH APPLESAUCE. REPOSITIONED Q2H AND ALOE TO BUTTOCKS. Follow up: CONTINUE PLAN OF CARE.
--- NOTE | 2016-09-22 04:30 | NUR ---
Significant Event: ALERT TO SELF. VSS ON 1L PER NC, SBP 90-LOW 100'S. REPOSITIONS Q2HR. EMILY. ARMS AND LEGS ELEVATED D/T EDEMA. LEFT UPPER MIDLINE IV IS SL, L)AC HAS HEPARIN RUNNING @ 1100 UNITS/HR, NEXT PTTHP DUE AT 0400, WAITING ON RESULTS. NO COMPLAINTS OF PAIN. SLEPT WELL THROUGHOUT THE NIGHT. ALOE TO BOTTOM. Follow up: CONTINUE WITH POC.
[2016-09-22 04:36] LABS: ANION GAP 11.6 (10.0-19.0); CREATININE 1.1 mg/dL (0.5-1.1); POTASSIUM 3.6 mMol/L (3.7-5.1)
[2016-09-22 04:40] LABS: EOSINOPHIL % 0.5 %; HEMOGLOBIN 9.5 g/dL (10.0-15.0); IMMATURE GRANULOCYTE % 0.5 %; LYMPHOCYTE # 0.6 K/uL (0.8-4.0); LYMPHOCYTE % 13.7 %; MCV 98.6 fl (83.0-98.0); MONOCYTE # 0.4 K/uL (0.0-1.0); MONOCYTE % 8.7 %; MPV 9.3 fl (9.4-12.4); NEUTROPHIL # (ANC) 3.4 K/uL (1.8-7.8); NEUTROPHIL % 76.6 %; NRBC % 0 /100WBC (0-0.00); RBC 2.88 M/uL (3.00-5.00); RDW-CV 17.4 % (11.9-14.6); WBC 4.4 K/uL (4.0-11.0)
[2016-09-22 04:41] LABS: HEMATOCRIT 28.4 % (30.0-46.0); MCHC 33.5 gm/dL (32.0-36.5); PLATELET COUNT 84 K/uL (150-450)
--- NOTE | 2016-09-22 19:11 | NUR ---
Significant Event: SBPS 90S-102 HI THIS SHIFT; AM LOPRESSOR DOSE HELD PER PARAMETERS. DENIES CP. GARCIA WITH ADEQUATE UOP. HEPARIN GTT D/C'D. MIDLINE AND PIV FLUSH WELL WITH GOOD BLOOD RETURN. 1:1 FEEDER AND DOES WELL WITH PUREED DIET AND HONEY THICKENED CONSISTENCY. MEDS CRUSHED IN APPLESAUCE. REPOSITIONED Q2H AND ALOE TO BUTTOCKS. SLEEPS ON/OFF FOR ALL OF SHIFT. Follow up: CONTINUE PLAN OF CARE; PLAN TO TX BACK TO [place] [facility].
[2016-09-23 03:57] LABS: EOSINOPHIL % 1.2 %; HEMATOCRIT 32.6 % (30.0-46.0); HEMOGLOBIN 10.6 g/dL (10.0-15.0); IMMATURE GRANULOCYTE % 0.9 %; LYMPHOCYTE # 0.8 K/uL (0.8-4.0); LYMPHOCYTE % 22.2 %; MCH 32.4 pg (27.0-34.0); MCHC 32.5 gm/dL (32.0-36.5); MCV 99.7 fl (83.0-98.0); MONOCYTE # 0.4 K/uL (0.0-1.0); MONOCYTE % 10.4 %; NEUTROPHIL # (ANC) 2.3 K/uL (1.8-7.8); NEUTROPHIL % 65.3 %; NRBC % 0 /100WBC (0-0.00); RBC 3.27 M/uL (3.00-5.00); WBC 3.5 K/uL (4.0-11.0)
[2016-09-23 04:02] LABS: PLATELET COUNT 116 K/uL (150-450)
--- NOTE | 2016-09-23 05:34 | NUR ---
Significant events: Pt oriented to self, place at times. Drowsy most of shift. VSS, SBP 90-120's, on RA. Toribio in place, good UOP. Midline to L) upper arm, SL. Poor oral intake, pureed and nectar thick liquids continue. Repositioned frequently. Follow up: to return to [facility] today.
[2016-09-23 07:10] LABS: ANION GAP 11.1 (10.0-19.0); CALCIUM 8.4 mg/dL (8.5-10.5); POTASSIUM 4.1 mEq/L (3.7-5.1)
[2016-09-23 07:11] LABS: CREATININE 1.1 mg/dL (0.5-1.1)
--- NOTE | 2016-09-23 12:15 | NUR ---
PATIENT IS A/OX2, NOT TO TIME. VSS ON ROOM AIR, 96/56, 83, 97.5, 18, 96%. NO COMPLAINTS OF PAIN. IV'S REMOVED FROM LEFT ARM WITHOUT DIFFICULTLY. PT. REPOSITIONS Q2HR. NO BM SINCE BEFORE ADMISSION. PT. IS A FEEDER ON PUREE DIET WITH HONEY THICKENED LIQUIDS. EDEMA REMAINS TO BILATERAL ARMS & LOWER EXTREMETIES. STERI-STRIPS STILL INTACT TO RIGHT ARM. GARCIA D/C'D AT 1145, NO VOID YET. MEDICATION CHANGES. ALOE VESTA TO BUTTOCK FOR REDNESS. SON HERE TODAY AND UPDATED ON PATIENT, KNOW SHE IS GOING BACK TO [facility] TODAY. PT. PLEASANT AND COOPERATIVE WITH CARES.
--- NOTE | 2016-09-23 16:06 | NUR ---
I did fax orders this am and called Kaya she can return. I spoke with pt and she stated she is ready to return. Time set up for 1300. I did call daughter Jessica and let her know and she ageed. WIll assist as needed.
== END 2016-09-23 13:20 | DRG 280 ==
LOC: GMED 19:40 → GPCU 22:19
PROVIDERS: Emergency Medicine; Hospitalist; Internal Medicine Interventional Cardiology; ADMIT Internal Medicine
PROC: 0TPBX0Z Removal of Drainage Device from Bladder, External Approach (ICD-10-PCS; principal; 2016-09-23)
DX: I21.4 Non-ST elevation (NSTEMI) myocardial infarction (principal); J96.01 Acute respiratory failure with hypoxia; G93.40 Encephalopathy, unspecified; N17.9 Acute kidney failure, unspecified; I50.9 Heart failure, unspecified; E11.22 Type 2 diabetes mellitus with diabetic chronic kidney disease; E87.6 Hypokalemia; E88.09 Other disorders of plasma-protein metabolism, not elsewhere classified; F32.9 Major depressive disorder, single episode, unspecified; G30.9 Alzheimer's disease, unspecified; F02.80 Dementia in other diseases classified elsewhere, unspecified severity, without behavioral disturbance, psychotic disturbance, mood disturbance, and anxiety; N18.3 Chronic kidney disease, stage 3 (moderate); Z66 Do not resuscitate; D72.829 Elevated white blood cell count, unspecified; D64.9 Anemia, unspecified
CPT/HCPCS: C1751; J1644; J1940; J2543; J3475; J3480; J7030; J7040

== ENCOUNTER → 2016-09-20 | Outpatient (CLI) | payer MEDICARE, MEDICAID ==
--- NOTE | ~2016-09-20 | ECHO ---
Transthoracic Echocardiography Report (TTE) Demographics Patient Name JUAN CASTANEDA Date of Study 09/20/2016 Patient Number [id number] Visit Number [id number] Date of 1930 Room Number Gender Female Number Age 86 year(s) Referring Marietta Santillan Hand Lacer Lata Apple Physician RDCS, RVT Physician Interpreting Rosas Cobb [employer] Driver Physician Supervising Ordering Marietta Santillan MD/MLP Physician Nurse Stress Gas Plumbing Inspector Conclusions Contractility Score Summary Normal Left Ventricular contractility was noted. Summary Technically difficult exam. Normal LV/RV size and systolic function. The estimated left ventricular ejection fraction is 60%. There is moderate aortic regurgitation by color Doppler. Trivial tricuspid regurgitation by color Doppler. The pulmonary pressure (RVSP) is 36.36 mmHg. Procedure Type of Study TTE procedure:2D Echocardiogram. Procedure Date Date: 09/20/2016 Start: 02:20 PM Study Location: Echo Lab Technical Quality: Limited visualization due to body habitus. Indications:Edema. Appropriate Use Criteria: 9 Patient Status: Routine HR: 114 bpm BP: 126/81 mmHg M-Mode/2D Measurements LV Diastolic Dimension: 4.49 cm LV Systolic Dimension: 2.2 cm LV Septum Diastolic: 0.62 cm LV PW Diastolic: 0.89 cm Cardiac Output: 7.94 l/min RV Diastolic Dimension: 2.31 cm LVOT VTI: 20.3 cm LV Stroke volume: 69.61 ml RV Base: 3.08 cm RV Mid: 2.72 cm RV Length: 5.96 cm TAPSE: 1.49 cm TDI-S': 15.1 cm/s Doppler Measurements AV Peak Velocity: 1.22 m/s MV Peak E-Wave: 1.21 m/s AV Peak Gradient: 5.95 mmHg AV Mean Gradient: 4.46 mmHg LVOT Peak Velocity: 1.04 m/s AV P1/2t: 338 msec PV Peak Velocity: 1.09 m/s TR Velocity:2.8 m/s PV Peak Gradient: 4.75 mmHg TR Gradient:31.36 mmHg Estimated PASP: 36.36 mmHg Estimated RAP:5 mmHg Estimated RVSP: 36 mmHg Findings Left Ventricle Normal left ventricle size and function. Diastolic function indeterminate due to patient's arrhythmia. Right Ventricle Normal right ventricle structure and function. Left Atrium Normal appearing left atrial size. Right Atrium Normal right atrial size. IVC imaging is consistent with normal RA pressures. Mitral Valve Trivial mitral regurgitation by color Doppler. Mild mitral annular calcification. Aortic Valve There is moderate aortic regurgitation by color Doppler. Mild AV sclerosis. Tricuspid Valve Trivial tricuspid regurgitation by color Doppler. There is mild pulmonary hypertension. The pulmonary pressure (RVSP) is 36.36 mmHg. Pulmonic Valve PV is not well seen. Trace PI. Pericardial Effusion No evidence of pericardial effusion. Miscellaneous Visualized portions of the aortic root and ascending aorta appear normal in size. Pleural Effusion No evidence of pleural effusion. Signature dtt: RM SUTTON dtd: 09/20/16 9774 Physician Self Edit
== END | disposition disaster alternative care site (69) ==
LOC: GCAR 13:59
DX: R60.0 Localized edema (principal); I35.1 Nonrheumatic aortic (valve) insufficiency; I07.1 Rheumatic tricuspid insufficiency

== ENCOUNTER → 2016-09-20 | Outpatient (CLI) | payer MEDICARE, MEDICAID | END | disposition disaster alternative care site (69) | LOC: GAMB 19:18 | DX: R41.82 Altered mental status, unspecified (principal); F41.9 Anxiety disorder, unspecified; R00.0 Tachycardia, unspecified; Z79.82 Long term (current) use of aspirin; Z79.899 Other long term (current) drug therapy | CPT/HCPCS: A0422; A0425; A0427 ==